=== PATIENT | male | born 1945 | race Caucasian/White ===

== ENCOUNTER 2023-08-05 06:35 | Outpatient (RCR) | payer MEDICARE, OTHER, SELFPAY | END 2023-08-05 23:59 | disposition home or self-care (01) | LOC: RPT 06:35 | PROVIDERS: ATTENDING PHYSICIAN Family Medicine | DX: R26.89 Other abnormalities of gait and mobility (principal); Z73.6 Limitation of activities due to disability; M25.562 Pain in left knee; M25.561 Pain in right knee; G62.9 Polyneuropathy, unspecified; R53.1 Weakness; I25.2 Old myocardial infarction | CPT/HCPCS: 97110; 97112; 97162 ==

== ENCOUNTER 2023-09-02 07:29 | Outpatient (RCR) | payer MEDICARE, OTHER, SELFPAY | END 2023-09-02 23:59 | disposition home or self-care (01) | LOC: RPT 07:29 | PROVIDERS: ATTENDING PHYSICIAN Family Medicine | DX: Z51.89 Encounter for other specified aftercare (principal); R26.89 Other abnormalities of gait and mobility; Z73.6 Limitation of activities due to disability; M62.81 Muscle weakness (generalized); G62.9 Polyneuropathy, unspecified; M25.562 Pain in left knee; M25.561 Pain in right knee; I25.2 Old myocardial infarction | CPT/HCPCS: 97110; 97112 ==

== ENCOUNTER 2023-09-12 06:33 | Outpatient (RCR) | payer MEDICARE, OTHER, SELFPAY | END 2023-09-25 09:39 | disposition home or self-care (01) | LOC: RPT 06:33 | PROVIDERS: ATTENDING PHYSICIAN Family Medicine | DX: R26.9 Unspecified abnormalities of gait and mobility (principal); Z51.89 Encounter for other specified aftercare; Z73.6 Limitation of activities due to disability | CPT/HCPCS: 97110; 97112 ==

== ENCOUNTER 2023-10-13 19:25 | Emergency (ER) | payer OTHER, MEDICARE, SELFPAY ==
[2023-10-13 19:29] VITALS: BP 155/93
[2023-10-13 21:07] VITALS: BP 143/92
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
[2023-10-13] MEDS: TYLENOL 1000 MG PO (22:30)
[2023-10-13 22:34] VITALS: BP 172/97
[2023-10-13 22:35] VITALS: BP 172/97
== END 2023-10-13 22:39 | disposition home or self-care (01) ==
LOC: EMR 19:25
PROVIDERS: EMERGENCY PHYSICIAN Emergency Medicine; FAMILY PHYSICIAN Family Medicine
DX: S46.911A Strain of unspecified muscle, fascia and tendon at shoulder and upper arm level, right arm, initial encounter (principal); V49.40XA Driver injured in collision with unspecified motor vehicles in traffic accident, initial encounter; I48.91 Unspecified atrial fibrillation; I25.10 Atherosclerotic heart disease of native coronary artery without angina pectoris; I11.0 Hypertensive heart disease with heart failure; I50.9 Heart failure, unspecified; I25.2 Old myocardial infarction; Z79.01 Long term (current) use of anticoagulants; Z86.73 Personal history of transient ischemic attack (TIA), and cerebral infarction without residual deficits; Z87.891 Personal history of nicotine dependence; Z95.5 Presence of coronary angioplasty implant and graft; Z95.810 Presence of automatic (implantable) cardiac defibrillator
CPT/HCPCS: 99284; 70450; 73030

== ENCOUNTER 2023-12-08 18:25 | Inpatient (IN) | payer MEDICARE, OTHER, SELFPAY ==
[2023-12-07] VITALS (9 sets, daily range): BP systolic 119–152; BP diastolic 74–94; BMI 30.4
--- NOTE | 2023-12-07 15:36 | ED.GENMED ---
History of Present Illness
General
Chief Complaint: Headache
Source: patient and family
Exam Limitations: none
Time Seen by Provider: 12/07/23 15:25
Travel History
Have you had any contact with someone who has COVID-19?: No
Do you have any symptoms of coronavirus? Fever > 100 degrees, chills, cough, shortness of breath, sore throat, loss of taste or smell, muscle aches, or headache?: No
History of Present Illness
History of Present Illness:
78-year-old male woke at 9 AM and appeared to notice visual issues upon wakening. Initially describes some decreased vision in the right side. Then at times noted more horizontal decreased vision superiorly. Some left-sided headache that is now
left-sided pressure. Also some cognitive issues where he felt like he could not dial the phone. Symptoms have improved some. Patient is on a DOAC.
Past History
Past History
ED Past Medical History: Arrthythmia (Atrial fib), CAD, CHF, HTN, [place] and Other (KIDNEY STONE)
ED Past Surgical History: Cardiac (AICD/pacemaker placement, Stents x 2) and Orthopedic
Social History
Tobacco: Former smoker
Alcohol: None
Drug: None
Personal:
Living: with family
Employment: Employed
Family History
Family History: Other
Review of Systems
Review of Systems
All Other Systems: ROS reviewed and negative except as documented in HPI and ROS
Respiratory: Reports no symptoms
Cardiac: Reports no symptoms
ABD/GI: Reports no symptoms
Phy Exam
Physical Exam
Physical Exam:
GENERAL: Alert and oriented in no apparent distress
EYE: Orbits normal.
NECK: Supple, no carotid bruit
ENT: Pharynx without erythema
CARDIAC: Minimally irregular. Pacemaker.
LUNGS: Clear breath sounds,normal
ABDOMEN: Soft, without focal tenderness or distention
NEUROLOGICAL: Alert and oriented , decreased extension of the right arm secondary to shoulder issues. No weakness in the arm. Good lower extremity strength. Questionable quadrantanopsia right upper. Not always consistent but may have a visual
field cut
SKIN: Warm and dry, no rash or lesion, no discoloration, skin intact.
MUSCULOSKELETAL: No edema,no deformity.Good color
PSYCH: Normal and appropriate interaction.
Course
Orders/Labs/Results
Orders:
Orders
12/07/23 14:44
CT Head W/o Iv Contrast Urgent
Comment:
Reason For Exam: headache, visual cut right eye
12/07/23 15:36
Cardiac Monitoring- Treatment ONCE
IV Insert/Care/Rem.- Treatment PRN
Pulse Ox/cont/shift [RESP] Stat
Quantity: 1
12/07/23 15:37
Electrocardiogram (*1) Stat
Reason for Study: Other
Other Reason for Exam: neuro symptoms
EKG- Treatment ONCE
12/07/23 15:41
Complete Blood Count/With Diff Urgent
ESR [Erythrocyte Sed Rate] Urgent
PTT Urgent
Prothrombin Time Urgent
12/07/23 15:42
CT Head & Neck Angio W/wo IV Urgent
Comment:
Reason For Exam: Headache/quadrantanopsia/cognitive issues
12/07/23 18:23
NEUROLOGY CONSULT Routine
Consulting Provider: Jd Ryder
Was physician already notified: Yes
Reason for consult: Right eye visual field cut concern for CVA
12/07/23 18:24
Admit/Transfer Patient As Directed
Co-Sign Provider:
Level of Care: Observation services
Assign to:: Telemetry
Physician / Group: zeferino messina
Diagnosis: Right eye visual field cut concern for CVA
Reason for Telemetry: CVA/TIA
Date to Stop Telemetry: 12/10/23
Time to Stop Telemetry: 11:00
Code Status As Directed
Resuscitation Status: Full Code
12/07/23 18:45
Basic Metabolic Panel Urgent
12/08/23 06:00
Echo 2D MMode Color/Doppler IN AM
Reason for Study: cva
12/10/23 11:00
DC Protocol for Telemetry ONCE
Abnormal Lab Results
12/07/23 12/07/23
15:41 18:45
RBC 4.66 L 10^6/uL
(4.70-6.10)
RDW 15.2 H %
(11.5-14.5)
MPV 10.7 H fL
(7.4-10.4)
Absolute Monos (auto) 0.7 H 10^3/uL
(0.1-0.6)
PT 16.0 H Sec
(11.4-14.6)
APTT 36.3 H Sec
(23.4-35.0)
Chloride 108 H mmol/L
(98-107)
BUN 27 H mg/dl
(9-20)
Glucose 139 H mg/dl
(70-99)
12/07/23 15:41
12/07/23 18:45
Vital Signs
Initial and Last Documented VS:
Initial Vital Signs
Temp Pulse Resp BP Pulse Ox
97.9 F 83 20 140/79 98
12/07/23 14:38 12/07/23 14:38 12/07/23 14:38 12/07/23 14:38 12/07/23 14:38
Last Documented Vital Signs
Temp Pulse Resp BP Pulse Ox
98.5 F 74 18 119/94 97
12/07/23 18:52 12/07/23 20:01 12/07/23 20:01 12/07/23 20:01 12/07/23 20:01
MDM/Problems Addressed
Differential Diagnosis Includes:
Patient describing neurologic symptoms that started at 9 AM and have improved some. Clinically very stable and nontoxic. Possibly a quadrantanopsia. No other obvious acute neurologic issues. Discussed with neurology. They do recommend CTA
admission and further care.
*Pulse Oximetry
Patient hypoxic: no
*EKG
Interpreted by ED Provider?: Yes
Interpretation: abnormal
Comparison EKG: no changes
Heart Rate: 70
Rate: normal
Rhythm: a-fib and other (Ventricular paced complexes)
[place]: normal axis
Interval: normal interval
QRS Pattern: normal QRS
Ischemia: non-specific ST changes
*Critical Care Note
Total Time (30-74mins, 75-104mins- exclusive of procedures): Not Applicable
Data Reviewed
Review of Other/Old Records Reveals: Labs, Records, Radiology Studies, Testing and Discharge Summary
ED Attending Note
-
Portions of this chart may have been created with voice recognition software.� Occasional wrong word or��sound alike� substitutions may have occurred due to the inherent limitations of voice recognition software.
Discharge Plan
Departure
Patient Disposition: Admit
Date of Disposition: 12/07/23
Time of Disposition: 17:43
Presentation/result/management discussed w/ accepting MD/DO: Neurology
Discharge Problem:
Quadrantanopsia., Cognitive issues, Possible CVA
Interventions
Interventions:
*Risk Screen - Suicide Last Done: 12/07/23 15:52
*General Assessment Last Done: 12/07/23 15:52
*Neglect/Abuse Screening Last Done: 12/07/23 15:52
ED- Fall Risk Assessment Last Done: 12/07/23 15:52
*ED COVID-19 Vaccine History Last Done: 12/07/23 15:52
ED- Neurological Assessment Last Done: 12/07/23 15:52
[2023-12-07 15:48] LABS: % Basophils 0.4 % (0-2); % Immature Granulocytes 0.4 % (0-0.5); % Neutrophils 66.2 % (42.2-75.2); Absolute Eosinophils 0.3 10^3/uL (0-0.7); Absolute Lymphocytes 2.2 10^3/uL (1.2-3.4); Absolute Monocytes 0.7 10^3/uL (0.1-0.6); Absolute Neutrophils 6.4 10^3/uL (1.4-6.5); Hematocrit 41.7 % (39.0-52.0); Hemoglobin 14.1 g/dL (13.0-18.0); Mean Corp Hgb Conc. 33.8 g/dL (33.0-37.0); Mean Corpuscular Hgb 30.3 pg (27.0-31.0); Mean Corpuscular Volume 89.5 fL (80.0-94.0); Mean Platelet Volume 10.7 fL (7.4-10.4); Nucleated Red Blood Cells % 0 % (-); Platelet Count 158 10^3/uL (130-400); Red Blood Cell Count 4.66 10^6/uL (4.70-6.10); Red Cell Dist. Width 15.2 % (11.5-14.5); White Blood Cell Count 9.7 10^3/uL (4.8-10.8)
[2023-12-07 16:00] LABS: APTT 36.3 Sec (23.4-35.0)
[2023-12-07 16:02] LABS: Erythrocyte Sed Rate 7 mm/hour (0-20)
--- NOTE | 2023-12-07 17:47 | HPS.HSE ---
Addendum entered and electronically signed by Felipa Abreu MD 12/07/23 18:50:
pt seen and examined independently--agree with [employer] note
GENERAL: well developed, well nourished, male in no apparent distress
HEENT:NC/AT--visual field cut right eye, right upper quadrant
HEART: regular rate and rhythm, +S1, +S2
LUNGS : clear to auscultation bilaterally
ABDOM: soft, nontender, nondistended, + bowel sounds
EXT: no cyanosis, clubbing, or edema
NEUROLOGIC: grossly intact with exception of visual field cut
Left sided parietal Headache with right sided visual field impairment concern for CVA--despite being on Eliquis and ASA--(Hx prior chronic lacunar infarcts left thalamus patient was unaware of)--ADMIT--agree with neuro/PT/OT/SPEECH/MRI brain/lipid
panel/ECHO--would consider Verify now for ASA therapeutics, may need to change to plavix instead--cont asa/Eliquis/statin for now--check HGB R1H--OOQ brain-patient has conditional MRI/AICD [facility]
Essential HTN--Continue carvedilol 25 mg twice daily
Chronic right shoulder pain--Patient is in process of being worked up for right shoulder cuff tear has outpatient MRI scheduled in future
Chronic diastolic CHF without exacerbation--I/O, daily weights--Continue Entresto 1 tab p.o. twice daily--Continue furosemide 40 mg twice daily spironolactone 12.5 mg daily--Continue Farxiga 10 mg daily (2D echo 11/27/2022: EF 51%, mild to moderate
aortic stenosis, mild TR)--will repeat
CAD/PA October 2017--History of prior LAD stent x2 --nonsustained SVT 09/23/2022--Cardiac cath 10/02/2022 for NSVT, prior ST PA: Patent stents in the proximal LAD and small distal LAD, luminal irregularities in the RCA-Continue aspirin, carvedilol 25 mg
twice daily, Crestor 40 mg daily
Pacemaker/AICD [facility] conditional MRI
[id number]--Continue Eliquis 5 mg twice daily, carvedilol 25 mg twice daily
Carotid stenosis status post CEA
Overactive bladder--Continue Myrbetriq 25 mg daily
BPH--Continue Flomax 0.4 mg daily
Other PMH:
sleep apnea-does not use CPAP
anxiety
renal calculi
OA
[place]
skin CA squamous cell
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
Code status --Full code
Original Note:
Family Physician
-
Family Physician: Brandon Bowen
Chief Complaint
-
Left-sided headache, right eye visual field cut
History of Present Illness
78-year-old male who woke up at 9 AM noticed visual changes in his right eye first he states he could not see horizontally from 3-9 o'clock. He then developed a visual field cut from approximately 12-4 o'clock which she still has. He reported a
left-sided headache temporal/parietal area. Reports being able to read although he cannot distinguish the proper letters when he is reading. He also reports feeling difficulty being able to dial the phone. He is on DOAC therapy. He denies fever,
chills, chest pain, palpitations, shortness with, cough, abdominal pain, nausea, vomit, diarrhea, urinary symptoms. He reports being told at some point in 2018 that he had prior head bleeds on a CT but he does not recall a further workup yet he is
on aspirin and Eliquis with no issues.
He has past medical history CAD/PA 10/24/2017 2 stents LAD, permanent pacemaker 09/23/2018/AICD carotid stenosis with CEA, HTN, HLD, CHF, nonsustained SVT 09/23/2022, sleep apnea, anxiety, renal calculi, OA, [place], skin CA squamous cell, BPH, urinary
frequency.
Medical History
Past Medical History
Past Medical History: Reports Other
Additional Past Medical History:
CAD/PA October 2017 LAD stent x 2
A-fib
Pacemaker/AICD
HTN
HLD
CVA
BPH
Urinary frequency
sleep apnea-does not use CPAP
anxiety
renal calculi
OA
[place]
skin CA squamous cell
Past Surgical History: Reports Other
Additional Past Surgical History:
AICD/pacemaker
Cardiac stents x 2 LAD
Carotid endarterectomy
Colonoscopy
Social History
Tobacco: Non-smoker
Alcohol: None
Drug: None
Personal:
Living: With Family
Employment: Retired
Family History
Family History: Other (Mother PA late 60s in mid 70s, father DM2, PA 60s mid 70s)
Allergies / Home Medications
Allergies reflects when Allergies were last updated in [facility].
Home Medications with original date entered in [facility]
Allergy/Medication List:
Allergies
Allergy/AdvReac Type Severity Reaction Status Date / Time
daptomycin AdvReac Eosinophill Verified 12/07/23 14:37
ia
Home Medications
multivitamin with folic acid 400 mcg tablet (Tab-A-Elma) 1 tab PO DAILY Supplement 06/27/20
furosemide 40 mg tablet 40 mg PO BID Fluid retention/Swelling 02/26/21
spironolactone 25 mg tablet 12.5 mg PO DAILY Heart Failure 02/26/21
apixaban 5 mg tablet (Eliquis) 5 mg PO BID Blood clot prevention/tx 05/22/21
aspirin 81 mg chewable tablet 81 mg PO DAILY Blood clot prevention/tx 05/22/21
rosuvastatin 40 mg tablet 40 mg PO DAILY 10/02/22
carvedilol 25 mg tablet 25 mg PO BID 12/07/23
cholecalciferol (vitamin D3) 25 mcg (1,000 unit) tablet (Vitamin D3) 25 mcg PO DAILY 12/07/23
coenzyme Q10 200 mg capsule (Co Q-10) 200 mg PO DAILY 12/07/23
dapagliflozin propanediol 10 mg tablet (Farxiga) 10 mg PO DAILY 12/07/23
mirabegron 25 mg tablet,extended release 24 hr (Myrbetriq) 25 mg PO DAILY 12/07/23
sacubitril 24 mg-valsartan 26 mg tablet (Entresto) 1 tab PO BID 12/07/23
tamsulosin 0.4 mg capsule 0.4 mg PO DAILY 12/07/23
Review of Systems
-
History Source: Patient and Family
A 12 point ROS was completed and negative except as noted: Yes
Constitutional: Denies Fever or Chills
EENT: Reports Other (Right eye visual field cut horizontal upper velázquez and right parietal 12-4 o'clock); Denies Sore Throat
Respiratory: Denies Cough, Hemoptysis or Trouble Breathing
Cardiac: Denies Chest Pain, Diaphoresis, Palpitations or Syncope
Abdomen/GI: Denies Abdominal Pain, Nausea, Vomiting, Diarrhea, Constipated, Bloody Stools or Black Stools
: Denies Dysuria, Frequency, Flank Pain or Incontinence
Musculoskeletal: Denies Joint Pain or Edema
Skin: Denies Itching or Rash
Neurological: Reports Headache (Left temporal/left parietal); Denies Dizzy, Weakness or Numbness
Endocrine: Reports No Symptoms
Hematologic/Lymphatic: Reports No Symptoms
Psych: Reports Calm
Physical Exam
Vital Signs
Vital Signs
Temp Pulse Resp BP Pulse Ox
97.9 F 83 20 140/79 97
12/07/23 14:38 12/07/23 14:38 12/07/23 14:38 12/07/23 14:38 12/07/23 15:52
Physical Exam
General: Conversant; No Pain, Fever or Chills
HEENT: NormoCephalic, Anicteric, Moist mucous membranes, PERRLA, [place] Conjunctivae, No Ptosis and Other (Field cut right eye parietal 12-4 o'clock)
Respiratory: Clear; No Wheezes, Rales or Rhonchi
Cardiac: S1/S2, Regular Rhythm and Other (Pacemaker/AICD present); No Murmur, Rub, Gallop or Peripheral Edema
Breast: Deferred by me
GI: Soft, Non Tender, Non Distended, Normal Bowel Sounds and No Hepatosplenomegaly
Rectal: Deferred by Provider
Genito-urinary: Deferred by me
Musculoskeletal: No Clubbing, No Cyanosis and No Edema
Skin: Warm and Dry; No Rash
Neuro: AO x 3, No Motor Deficits, Cranial Nerves Intact, No Sensory Deficits and Other (Right eye visual field cut 12-4 o'clock); No Slurred Speech or Facial Droop
Psych: Calm
Laboratory Results
-
12/07/23 15:41
Laboratory Results
PT 16.0 Sec (11.4-14.6) H 12/07/23 15:41
INR 1.30 12/07/23 15:41
APTT 36.3 Sec (23.4-35.0) H 12/07/23 15:41
Data Reviewed
-
CT Scan: Report Reviewed by me
Lab Data: Labs Reviewed by me
Impression/Plan
-
Impression/plan:
Observation telemetry
#Headache with visual field impairment concern for CVA
#Hx prior chronic lacunar infarcts left thalamus patient was unaware of
-Consult neurology
-Continue aspirin 81 mg daily, Crestor 40 mg daily
-Check lipid profile, HgbA1c
-MRI brain-patient has conditional MRI/AICD [facility]
-PT/OT/case management eval
CT head:
1. No acute intracranial hemorrhage
2. 7 mm chronic lacunar infarct in the left thalamus
3. Moderate white matter leukoaraiosis in the parietal lobe, frontal lobe
4. Mild diffuse cerebral and cerebellar volume loss
#HTN�benign
BP 140/79
-Continue carvedilol 25 mg twice daily
#Chronic right shoulder pain
Patient is in process of being worked up for right shoulder cuff tear has outpatient MRI scheduled in future
#Chronic CHF
I/O, daily weights
-Continue Entresto 1 tab p.o. twice daily
-Continue furosemide 40 mg twice daily spironolactone 12.5 mg daily
-Continue Farxiga 10 mg daily
2D echo 11/27/2022: EF 51%, mild to moderate aortic stenosis, mild TR
#CAD/PA October 2017
#History of prior LAD stent x2
#nonsustained SVT 09/23/2022,
#Cardiac cath 10/02/2022 for NSVT, prior ST PA: Patent stents in the proximal LAD and small distal LAD, luminal irregularities in the RCA
-Continue aspirin, carvedilol 25 mg twice daily, Crestor 40 mg daily
#Pacemaker/AICD [facility] conditional MRI
#[id number]
-Continue Eliquis 5 mg twice daily, carvedilol 25 mg twice daily
#Carotid stenosis status post CEA
#Overactive bladder
-Continue Myrbetriq 25 mg daily
#BPH
-Continue Flomax 0.4 mg daily
Other PMH:
sleep apnea-does not use CPAP
anxiety
renal calculi
OA
[place]
skin CA squamous cell
DVT prophylaxis
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
Full code
--- NOTE | 2023-12-07 18:18 | EDRN ---
Dr. Abreu currently at the pts bedside speaking with the pt and the pts
[2023-12-07 19:10] LABS: Blood Urea Nitrogen 27 mg/dl (9-20); Calcium 9.4 mg/dl (8.4-10.2); Carbon Dioxide 24 mmol/L (22-30); Chloride 108 mmol/L (98-107); Estimated Creatinine Clearance 62 ml/min; Glucose 139 mg/dl (70-99); Potassium 3.9 mmol/L (3.5-5.1); Sodium 142 mmol/L (135-145); eGFR > 60.00
--- NOTE | 2023-12-07 19:30 | EDRN ---
Report received, introducd myself to patient who ambulated to the restroom and back in bed and the to CT
--- NOTE | 2023-12-07 21:32 | EDRN ---
Patient up to bathroom, asked for some more apple juice, patient aware that he will be staying in the ER tonight, no complaints at this time, call santiago in reach.
[2023-12-07] MEDS: ELIQUIS 5 MG PO (22:49)
[2023-12-07] MEDS: ENTRESTO 24 MG/26 MG 1 TAB PO (22:49)
--- NOTE | 2023-12-07 22:50 | EDRN ---
Patient ambulated to the restroom and then placed into a hospital bed, gave him night medications, patient not wanting the lasix, reports he normally takes that in the morning, patient does not have any pitting edema noted, nor shortness of breath,
and has been urinating throughout the shift, will inform hospitalist, call santiago in reach and lights turned down
[2023-12-07] MEDS: COREG 25 MG PO (22:51)
[2023-12-07] MEDS: LASIX PO (22:55)
--- NOTE | 2023-12-07 23:37 | EDRN ---
Report to JOHN Castellanos
[2023-12-08] VITALS (10 sets, daily range): BP systolic 109–154; BP diastolic 57–94; PULSE 58–68
[2023-12-08 05:03] LABS: % Basophils 0.4 % (0-2); % Eosinophils 3.2 % (0-6); % Immature Granulocytes 0.4 % (0-0.5); % Lymphocytes 23.2 % (20.5-51.1); % Monocytes 7.2 % (1.7-9.3); % Neutrophils 65.6 % (42.2-75.2); Absolute Eosinophils 0.3 10^3/uL (0-0.7); Absolute Lymphocytes 2.1 10^3/uL (1.2-3.4); Absolute Monocytes 0.7 10^3/uL (0.1-0.6); Hematocrit 43.5 % (39.0-52.0); Hemoglobin 14.5 g/dL (13.0-18.0); Mean Corp Hgb Conc. 33.3 g/dL (33.0-37.0); Mean Corpuscular Hgb 30.3 pg (27.0-31.0); Mean Platelet Volume 10.4 fL (7.4-10.4); Nucleated Red Blood Cells % 0 % (-); Platelet Count 148 10^3/uL (130-400); Red Blood Cell Count 4.78 10^6/uL (4.70-6.10); Red Cell Dist. Width 15.2 % (11.5-14.5); White Blood Cell Count 9.1 10^3/uL (4.8-10.8)
[2023-12-08 05:29] LABS: Blood Urea Nitrogen 24 mg/dl (9-20); Calcium 9.4 mg/dl (8.4-10.2); Carbon Dioxide 27 mmol/L (22-30); Chloride 106 mmol/L (98-107); Estimated Creatinine Clearance 62 ml/min; Glucose 101 mg/dl (70-99); HDL Cholesterol 39 mg/dl; LDL Cholesterol, Calculated 48 mg/dl; Potassium 4.1 mmol/L (3.5-5.1); Sodium 140 mmol/L (135-145); Total Cholesterol 113 mg/dl (50-199); Triglyceride 133 mg/dl (10-149); Very Low Density Lipoprotein 26 mg/dl (0-30); eGFR > 60.00
[2023-12-08 05:39] LABS: VerifyNow Aspirin 519 ARU
[2023-12-08 05:47] LABS: VerifyNow PRU 229 PRU (180-376)
--- NOTE | 2023-12-08 07:58 | CON.NEURO4 ---
Addendum entered and electronically signed by Brandon Mason MD 12/08/23 10:20:
I saw and evaluated the patient agree with note by Sahra Bryan agree with the findings the following comments:
78-year-old man with a past medical history of previous left parietal thalamic ischemic stroke, left carotid endarterectomy, hypertension, CAD chronic kidney disease presents to hospital with acute onset of vision loss starting around yesterday
morning upon awakening.
I see the patient in the outpatient for history of stroke as well as peripheral neuropathy that is contributed to some ambulatory difficulties.
Patient reports compliance with aspirin as well as apixaban and no bleeding issues. No recent illnesses.
His vision change seems to be to the right side and he noticed it as missing people on the right side of the television. He had a bit of a headache yesterday that was unusual for him. Currently not have any speech difficulty unilateral weakness or
paresthesia he does relate that he has had some walking difficulties for the past couple of weeks.
He also relates that he was planned for an MRI of the shoulder in the outpatient setting later on in the month of December.
Neurologic examination is remarkable for right-sided homonymous hemianopia otherwise no significant changes in mental status motor function notable only for some chronic right shoulder issues but normal arm flexion and hip abduction bilaterally and
has known existing peripheral neuropathy.
CTA of the head and neck with no intracranial occlusions no significant carotid stenosis
Assessment: Very likely a new ischemic stroke to the left occipital region producing right-sided him on his hemianopia. Discussed with the patient that he is on maximal medical management and I overall like the safety and efficacy profile of
apixaban so I do not feel strongly that it would be in the best interest of the patient to switch his antithrombotic regimen, would rather focus on physical therapies and allow time to show stay send of his recovery.
Recommendations
-LDL is at goal continue his home statin, continue focus of treatment of hypertension, CKD, hyperlipidemia
-Would continue apixaban and aspirin
-Check transthoracic echocardiogram
-Physical therapy occupational therapy evaluations
-Discussed with patient that he should not drive which he understands due to right-sided homonymous hemianopia, with time over the course of 3 to 6 months we will likely see some improvement and hopefully will get to the point where visual field
testing which would need to be done by ophthalmology as an outpatient could get him to a place where he can drive
Original Note:
Documented by User: Sahra Bryan NP 12/08/23 09:46
Consultation - Neurology 4
-
CONSULTING PHYSICIAN: Bryon Mason MD
REFERRING PHYSICIAN: Hospitalists/LOUIS Giron
DICTATED BY: LOUIS Dueñas
DATE/TIME OF REQUEST: 12/07/23
DATE/TIME OF CONSULTATION: 12/08/23
Reason for Consultation: Vision loss
History of Present Illness:
This is a 78-year-old right-handed male with a PMH of L CEA, chronic left parietal/thalamic ischemic infarct, HTN, HLD, CAD, CKD, anxiety, untreated TRISTAN, and peripheral neuropathy who has presented to the hospital on 12/07/23 with report of
right-sided vision loss. Patient is followed by our Neurology service Dr. Mason as an outpatient for his history of stroke and peripheral neuropathy. Patient reports waking up yesterday morning (12/07/23) around 0800 and noticing that his vision was
'funny.' He couldn't see things on the right side of his vision. He tried to read something and couldn't read, he reports all of the letter look the same. He tried to call his but wasn't able to figure out how to use his phone. He also notes
having a left-sided 7/10 headache which was very unusual for him. He denies any dizziness, speech/swallow difficulty, new numbness, weakness, nausea, chest pain, palpitations, and shortness of breath. On arrival to the ER CT head and CTA head/neck
were obtained and are negative for any acute abnormalities. Today (12/08/23), his vision feels somewhat improved in his left eye but his right eye is the same. He reports it looks like their is a veil over things on the right side. He is taking
Eliquis for Afib and aspirin for cardiac stents and he denies missing any doses. He has been on Xarelto and Plavix years ago. He denies any recent fever, illness, or vision change like this in the past.
Past Medical History: Afib (Eliquis), HTN, HLD, CAD, PR, SVT, chronic left parietal and thalamic lacunar infarct, CKD, anxiety, TRISTAN (untreated), renal calculi, OA, [place] R, squamous cell carcinoma, BPH, peripheral neuropathy, bilateral carpal tunnel
syndrome
Surgical History: AICD, LAD stent x2, cardiac cath, left CEA
Family History: Reviewed and noncontributory.
Social History: Former smoker and alcohol. Denies illicit drug use.
Allergies: Daptomycin.
Home Medications: See below.
Review of Symptoms:
Patient denies any fever, headache, chest pain, shortness of breath, GI or symptoms.
�Per the HPI.�All systems are reviewed negative except above.
Physical Exam:
The patient is afebrile, abdomen is nondistended, breathing is unlabored, skin is warm and dry, no edema.
NIH Stroke Scale:
I performed the NIH stroke scale on the patient on 12/08/23 at 0900. The patient scored 2 points on the NIH stroke scale assessment, which were assigned as follows: See below.
Neurologic Examination:
The patient is awake, alert and oriented x 3. He is able to follow commands and answer questions appropriately. There is no aphasia or dysarthria. On cranial nerve assessment, pupils are 3 mm bilateral, round and reactive to light and
accommodation. There is a right-sided homonymous hemianopia, more pronounced in the right eye compared to the left eye. Extraocular movements are intact. Facial sensations are intact and bilaterally symmetrical, there is no facial asymmetry. Hearing
is diminished bilaterally to normal conversation volume. Tongue palate and uvula are midline. Sternocleidomastoid strengths are full bilaterally. Motor strengths are 5/5 bilateral upper and lower extremities on medical research Chevak scale
(limited ROM in R shoulder due to injury). There is no drift or involuntary movement noted. Deep tendon reflexes are 2+ bilateral upper and left lower extremities, trace RLE and Babinski is absent bilaterally. Sensations of temperature and vibration
are moderately reduced in distal bilateral lower extremities. There was no extinction noted on double simultaneous stimulation. Coordination is intact by finger to nose bilaterally.
Lab Results: See below.
Neuro Imaging:
1. CT Head 12/07/23: No CT evidence for acute intracranial hemorrhage or transcortical infarct. 7 mm chronic lacunar infarct in the left thalamus. Moderate white matter leukoaraiosis in the parietal lobes. Mild white matter leukoaraiosis in the
frontal lobes. Mild diffuse cerebral and cerebellar volume loss.
2. CTA head/neck 12/08/23: Moderate calcific and soft atherosclerotic plaque in the proximal right internal carotid artery causing a 50% diameter stenosis. No CTA evidence for stenosis in the left internal carotid artery following a left carotid
endarterectomy. 50% diameter stenosis at the origin of the left vertebral artery. No CTA evidence for stenosis in the right vertebral artery. Severe discogenic degenerative disease in the cervical spine with disc-osteophyte complexes causing mild
spinal cord compression and central canal stenosis at C4/C5, C5/C6, and C6/C7. Chronic asbestos exposure in the chest. HEAD CTA: Mild calcific atherosclerotic plaque in both intracranial internal carotid arteries causing less than 25% diameter
stenosis. No CTA evidence for large vessel arterial stenosis or occlusion in the posterior circulation. Moderate white matter leukoaraiosis in both cerebral hemispheres. 7 mm chronic lacunar infarct in the left thalamus.
3. MRI brain 07/17/21: No MRI evidence for acute infarct. Small chronic transcortical infarct in the posterior-inferior left parietal lobe. 5.5 mm chronic lacunar infarct in the left thalamus. Mild to moderate white matter leukoaraiosis in both
cerebral hemispheres. Tiny chronic intraparenchymal microhemorrhages in the left cerebellum and in both thalami. Mild diffuse cerebral and cerebellar volume loss. Mild paranasal sinus mucosal disease
Differentials for the patient's presentation include:
1. Likely an acute left occipital ischemic stroke producing a right homonymous hemianopia; unclear etiology.
2. Old left parietal and left thalamic ischemic stroke.
3. Hx left carotid occlusion s/p left CEA. CTA head/neck negative for any significant stenosis.
4. Chronic intraparenchymal microhemorrhages in the left cerebellum and thalami.
5. Peripheral neuropathy with chronic gait dysfunction.
Patient has the following risk factors for their symptoms: Afib, HTN, HLD, age
IV Tenecteplase/IAT candidacy: Not a candidate due to outside of time window.
Recommendations:
-Continue Eliquis 5mg BID and aspirin 81mg daily. No clear indication that changing anticoagulation will be of any benefit to patient.
-Goal normotension as it is 24 hour from symptom onset.
-MRI brain noncontrast pending.
-LDL goal <70. LDL is 48. LDL is at goal, continue home rosuvastatin 40mg daily.
-Goal normoglycemia, hbA1c is pending.
-Checking blood work for metabolic abnormalities.
-NIHSS and neurological checks per unit guidelines.
-Provide patient with a stroke education packet.
-PT/OT/ST evaluations
-DVT prophylaxis with OAC.
-Will follow pending results.
Discussed patient care with: Dr. Mason, the patient
Vital Signs and Labs
-
Vital Signs and Labs:
Vital Signs
Temp Pulse Resp BP Pulse Ox
97.6 F 65 13 128/72 98
12/08/23 07:26 12/08/23 08:27 12/08/23 07:26 12/08/23 08:27 12/08/23 07:26
Lab Results
12/08/23 04:49
12/08/23 04:49
PT 16.0 Sec (11.4-14.6) H 12/07/23 15:41
INR 1.30 12/07/23 15:41
APTT 36.3 Sec (23.4-35.0) H 12/07/23 15:41
Sodium 140 mmol/L (135-145) 12/08/23 04:49
Potassium 4.1 mmol/L (3.5-5.1) 12/08/23 04:49
BUN 24 mg/dl (9-20) H 12/08/23 04:49
Glucose 101 mg/dl (70-99) H 12/08/23 04:49
Calcium 9.4 mg/dl (8.4-10.2) 12/08/23 04:49
LDL Cholesterol, Calc 48 mg/dl 12/08/23 04:49
Medications
-
Active Medications
Generic Name Dose Route Start Last Admin
Trade Name Freq PRN Reason Stop Dose Admin
Acetaminophen 650 mg 12/07/23 21:30
Acetaminophen 650 Mg Rectal Suppository RECTAL 01/04/24 21:29
Q4HPRN PRN
CROFT, mild pain, or temp >100.4F
Acetaminophen 650 mg 12/07/23 21:30 12/08/23 08:33
Acetaminophen 325 Mg Tablet PO 01/04/24 21:29 650 mg
Q4HPRN PRN Administration
CROFT, mild pain, or temp >100.4F
Apixaban 5 mg 12/07/23 21:30 12/08/23 08:26
Apixaban (Eliquis) 5 Mg Tablet PO 01/04/24 21:29 5 mg
BID JONO Administration
Aspirin 81 mg 12/08/23 08:00 12/08/23 08:26
Aspirin 81 Mg Chewable Tablet PO 01/05/24 07:59 81 mg
DAILY JONO Administration
Carvedilol 25 mg 12/07/23 21:30 12/08/23 08:24
Carvedilol 25 Mg Tablet PO 01/04/24 21:29 25 mg
BID JONO Administration
Cholecalciferol 25 mcg 12/08/23 08:00 12/08/23 08:26
Cholecalciferol (Vitamin D3) 25 Mcg Tablet (1,000 Units) PO 01/05/24 07:59 25 mcg
DAILY JONO Administration
Dapagliflozin 10 mg 12/08/23 08:00 12/08/23 08:24
Dapagliflozin (Farxiga) 10 Mg Tablet PO 01/05/24 07:59 10 mg
DAILY JONO Administration
Furosemide 40 mg 12/07/23 21:30 12/08/23 08:27
Furosemide 40 Mg Tablet PO 01/04/24 21:29 40 mg
BID JONO Administration
Mirabegron 25 mg 12/08/23 08:00 12/08/23 08:26
Mirabegron Extended Release 25 Mg Tab (Non Form) PO 01/05/24 07:59 25 mg
DAILY JONO Administration
Multivitamins Therapeutic 1 tablet 12/08/23 08:00 12/08/23 08:26
Multivitamin Tablet PO 01/05/24 07:59 1 tablet
DAILY JONO Administration
Rosuvastatin Calcium 40 mg 12/08/23 08:00 12/08/23 08:26
Rosuvastatin (Crestor) 40 Mg Tablet PO 01/05/24 07:59 40 mg
DAILY JONO Administration
Sacubitril/Valsartan 1 tab 12/07/23 21:30 12/08/23 08:24
Sacubitril 24 Mg/Valsartan 26 Mg (Entresto) Tab PO 01/04/24 21:29 1 tab
BID JONO Administration
Spironolactone 12.5 mg 12/08/23 08:00 12/08/23 08:28
Spironolactone 25 Mg Tablet PO 01/05/24 07:59 12.5 mg
DAILY JONO Administration
Tamsulosin HCl 0.4 mg 12/08/23 08:00 12/08/23 08:26
Tamsulosin 0.4 Mg Capsule PO 01/05/24 07:59 0.4 mg
DAILY JONO Administration
Home Medications
�Medication �Instructions �Recorded
multivitamin with folic acid 400 1 tab PO DAILY Supplement 06/27/20
mcg tablet (Tab-A-Elma)
furosemide 40 mg tablet 40 mg PO BID Fluid 02/26/21
retention/Swelling
spironolactone 25 mg tablet 12.5 mg PO DAILY Heart Failure 02/26/21
apixaban 5 mg tablet (Eliquis) 5 mg PO BID Blood clot 05/22/21
prevention/tx
aspirin 81 mg chewable tablet 81 mg PO DAILY Blood clot 05/22/21
prevention/tx
rosuvastatin 40 mg tablet 40 mg PO DAILY 10/02/22
carvedilol 25 mg tablet 25 mg PO BID 12/07/23
cholecalciferol (vitamin D3) 25 25 mcg PO DAILY 12/07/23
mcg (1,000 unit) tablet (Vitamin
D3)
coenzyme Q10 200 mg capsule (Co 200 mg PO DAILY 12/07/23
Q-10)
dapagliflozin propanediol 10 mg 10 mg PO DAILY 12/07/23
tablet (Farxiga)
mirabegron 25 mg tablet,extended 25 mg PO DAILY 12/07/23
release 24 hr (Myrbetriq)
sacubitril 24 mg-valsartan 26 mg 1 tab PO BID 12/07/23
tablet (Entresto)
tamsulosin 0.4 mg capsule 0.4 mg PO DAILY 12/07/23
NIH Stroke Score
Subsequent NIH Scale
Date of Subsequent NIH Scale: 12/08/23
Time of Subsequent NIH Scale: 09:00
NIH Stroke Score
Level of Consciousness: 0 - Alert
LOC Questions: 0-Answers both correctly
LOC Commands: 0-Performs both correctly
Best Horizontal Gaze: 0-Normal
Visual Chen: 2=Full hemianopia
Facial Palsy: 0=Normal, symmetrical
Motor - Right Arm: 0=No drift 10 seconds
Motor - Left Arm: 0=No drift 10 seconds
Motor - Right Le-No drift 5 seconds
Motor - Left Le-No drift 5 seconds
Limb Ataxia: 0-Absent
Sensation: 0-Normal
Best Language: 0-No aphasia
Dysarthria: 0-Normal
Extinction and Inattention: 0-No abnormality
Total Score:: 2
Modified [place] (mRS) Score
Modified [place] Scale (mRS): Moderate disability. Requires some help, able to walk unassisted.
Score: 3

Documented by User: Brandon Mason MD 12/08/23 10:13
NIH Stroke Score
NIH Stroke Score
Total Score:: 2
Modified [place] (mRS) Score
Score: 3
[2023-12-08] MEDS: FARXIGA 10 MG PO (08:24)
[2023-12-08] MEDS: COREG 25 MG PO ×2 (08:24→21:16)
[2023-12-08] MEDS: ENTRESTO 24 MG/26 MG 1 TAB PO ×2 (08:24→22:17)
[2023-12-08 08:25] LABS: Glucose - Point of Care 93 mg/dl (70-99)
[2023-12-08] MEDS: CRESTOR 40 MG PO (08:26)
[2023-12-08] MEDS: LOW STRENGTH ASPIRIN 81 MG PO (08:26)
[2023-12-08] MEDS: MYRBETRIQ EXTENDED RELEASE 25 MG PO (08:26)
[2023-12-08] MEDS: FLOMAX 0.400000000000000022 MG PO (08:26)
[2023-12-08] MEDS: THERAGRAN 1 TABLET PO (08:26)
[2023-12-08] MEDS: ELIQUIS 5 MG PO ×2 (08:26→20:19)
[2023-12-08] MEDS: VITAMIN D3 (cholecalciferol) 25 MCG PO (08:26)
[2023-12-08] MEDS: LASIX 40 MG PO (08:27)
[2023-12-08] MEDS: ALDACTONE 12.5 MG PO (08:28)
[2023-12-08] MEDS: TYLENOL 650 MG PO ×2 (08:33→21:19)
--- NOTE | 2023-12-08 09:28 | W.PN.HOSP.TC ---
Today's Communication/Plan
-
Stroke workup in progress. Neurology consult.
Assessment / Plan
Assessment / Plan
Physical exam:
General: Acutely ill
HEENT: Normocephalic, Atraumatic and Moist Mucous Membranes
Respiratory: Clear to Auscultation; Negative Wheezes, Rales or Rhonchi
Cardiac: Regular Rhythm and S1/S2
GI: Soft, Nontender and Nondistended
Musculoskeletal: No Clubbing, No Cyanosis and No Edema
Neuro: Awake, Alert and Oriented, right upper extremity weak but prior to this event, presence of right homonymous hemianopsia.
Psych: Calm
A/P:
#Headache with visual field impairment likely acute CVA
#Hx prior chronic lacunar infarcts left thalamus patient was unaware of
-Consult neurology
-Continue aspirin 81 mg daily, Crestor 40 mg daily
-Check lipid profile, HgbA1c
-MRI brain-patient has conditional MRI/AICD [facility]
-PT/OT/case management eval
CT head:
1. No acute intracranial hemorrhage
2. 7 mm chronic lacunar infarct in the left thalamus
3. Moderate white matter leukoaraiosis in the parietal lobe, frontal lobe
4. Mild diffuse cerebral and cerebellar volume loss
#HTN�benign
-Continue carvedilol 25 mg twice daily
#Chronic right shoulder pain
Patient is in process of being worked up for right shoulder cuff tear has outpatient MRI scheduled in future
#Chronic CHF
I/O, daily weights
-Continue Entresto 1 tab p.o. twice daily
-Continue furosemide 40 mg twice daily spironolactone 12.5 mg daily
-Continue Farxiga 10 mg daily
2D echo 11/27/2022: EF 51%, mild to moderate aortic stenosis, mild TR
#CAD/[place] October 2017
#History of prior LAD stent x2
#nonsustained SVT 09/23/2022,
#Cardiac cath 10/02/2022 for NSVT, prior [facility]: Patent stents in the proximal LAD and small distal LAD, luminal irregularities in the RCA
-Continue aspirin, carvedilol 25 mg twice daily, Crestor 40 mg daily
#Pacemaker/AICD [facility] conditional MRI
#F-pxk-pfwribiono
-Continue Eliquis 5 mg twice daily, carvedilol 25 mg twice daily
#Carotid stenosis status post CEA
#Overactive bladder
-Continue Myrbetriq 25 mg daily
#BPH
-Continue Flomax 0.4 mg daily
Other PMH:
sleep apnea-does not use CPAP
anxiety
renal calculi
OA
[place]
skin CA squamous cell
DVT prophylaxis
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
Full code
Total time spent on today's encounter was 52 minutes which included time spent in counseling the patient/family regarding diagnosis and treatment plan as listed above, goals of care, and symptom management. Case was discussed with nursing staff,
specialists, and care coordinators/case management. All labs and imaging personally reviewed by me. Remainder the time spent in detailed review of previous records, lab data, imaging, and other medical provider documentation.
Anticipated Discharge: > 48 hours
Subjective/Interval History
-
Date of Service: December 08, 2023
Patient continues to have right eye loss of vision. Generalized weakness. Prior weakness on right upper extremity
Objective Data
-
Labs:
Laboratory Results
12/08/23
04:49
WBC 9.1
Hgb 14.5
Hct 43.5
Plt Count 148
Sodium 140
Potassium 4.1
Chloride 106
Carbon Dioxide 27
BUN 24 H
Creatinine 1.1
Glucose 101 H
Calcium 9.4
Vital Signs:
Vital Signs
Temp Pulse Resp BP Pulse Ox
97.6 F 65 13 128/72 98
12/08/23 07:26 12/08/23 08:27 12/08/23 07:26 12/08/23 08:27 12/08/23 07:26
[2023-12-08 10:59] LABS: TSH Reflex To Free T4 3.89 uIU/ml (0.47-4.68)
[2023-12-08 11:03] LABS: Ferritin 53.6 ng/ml (17.9-464.0)
[2023-12-08 11:34] LABS: Folate > 20.0 ng/ml (2.76-20); Vitamin B12 495 pg/ml (239-931)
[2023-12-08 12:10] LABS: Glycohemoglobin (HgbA1c) 5.7 % (4.0-5.6)
[2023-12-08 12:10] LABS: Glycohemoglobin (HgbA1c) 5.8 % (4.0-5.6)
[2023-12-08] MEDS: LASIX PO (20:00)
--- NOTE | 2023-12-08 21:09 | EDRN ---
Had to call Pharmacy again about sending patients medications that were due at 1999, they still have not sent, patient aware of delay and resting comfortably
--- NOTE | 2023-12-08 22:29 | EDRN ---
Emptied patietns urinal and turned down lights, call santiago in reach and vital signs stable
[2023-12-09 05:11] VITALS: BP 138/75
--- NOTE | 2023-12-09 05:29 | EDRN ---
[facility] morning blood work, patient has been resting comfortably, will continue to monitor, no complaints at this time.
[2023-12-09 05:31] LABS: Hematocrit 44.5 % (39.0-52.0); Hemoglobin 14.7 g/dL (13.0-18.0); Mean Corpuscular Hgb 30.2 pg (27.0-31.0); Mean Corpuscular Volume 91.6 fL (80.0-94.0); Mean Platelet Volume 10.8 fL (7.4-10.4); Platelet Count 147 10^3/uL (130-400); Red Blood Cell Count 4.86 10^6/uL (4.70-6.10); Red Cell Dist. Width 14.7 % (11.5-14.5); White Blood Cell Count 8.6 10^3/uL (4.8-10.8)
[2023-12-09 05:53] LABS: Blood Urea Nitrogen 26 mg/dl (9-20); Calcium 8.9 mg/dl (8.4-10.2); Carbon Dioxide 25 mmol/L (22-30); Chloride 107 mmol/L (98-107); Estimated Creatinine Clearance 68 ml/min; Glucose 92 mg/dl (70-99); Sodium 140 mmol/L (135-145); eGFR > 60.00
--- NOTE | 2023-12-09 08:36 | W.PN.HOSP.TC ---
Today's Communication/Plan
-
MRI of the brain. PT OT.
Assessment / Plan
Assessment / Plan
Physical exam:
General: Acutely ill
HEENT: Normocephalic, Atraumatic and Moist Mucous Membranes
Respiratory: Clear to Auscultation; Negative Wheezes, Rales or Rhonchi
Cardiac: Regular Rhythm and S1/S2
GI: Soft, Nontender and Nondistended
Musculoskeletal: No Clubbing, No Cyanosis and No Edema
Neuro: Awake, Alert and Oriented, right upper extremity weak but prior to this event, presence of right homonymous hemianopsia.
Psych: Calm
A/P:
#Headache with visual field impairment likely acute CVA
#Hx prior chronic lacunar infarcts left thalamus patient was unaware of
-Consult neurology appreciated
-Continue aspirin 81 mg daily, Eliquis 5 mg twice a day, Crestor 40 mg daily
-Check lipid profile, HgbA1c-->LDL 48, HbA1c 5.7
-MRI brain-patient has conditional MRI/AICD [facility]
-PT/OT/case management eval
CT head:
1. No acute intracranial hemorrhage
2. 7 mm chronic lacunar infarct in the left thalamus
3. Moderate white matter leukoaraiosis in the parietal lobe, frontal lobe
4. Mild diffuse cerebral and cerebellar volume loss
#HTN�benign
-Continue carvedilol 25 mg twice daily
#Chronic right shoulder pain
Patient is in process of being worked up for right shoulder cuff tear has outpatient MRI scheduled in future
#Chronic CHF
I/O, daily weights
-Continue Entresto 1 tab p.o. twice daily
-Continue furosemide 40 mg twice daily spironolactone 12.5 mg daily
-Continue Farxiga 10 mg daily
2D echo 11/27/2022: EF 51%, mild to moderate aortic stenosis, mild TR
#CAD/[place] October 2017
#History of prior LAD stent x2
#nonsustained SVT 09/23/2022,
#Cardiac cath 10/02/2022 for NSVT, prior [facility]: Patent stents in the proximal LAD and small distal LAD, luminal irregularities in the RCA
-Continue aspirin, carvedilol 25 mg twice daily, Crestor 40 mg daily
#Pacemaker/AICD [facility] conditional MRI
#B-[id number]-bpwshdqwbm
-Continue Eliquis 5 mg twice daily, carvedilol 25 mg twice daily
#Carotid stenosis status post CEA
#Overactive bladder
-Continue Myrbetriq 25 mg daily
#BPH
-Continue Flomax 0.4 mg daily
Other PMH:
sleep apnea-does not use CPAP
anxiety
renal calculi
OA
[place]
skin CA squamous cell
DVT prophylaxis
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
Full code
Anticipated Discharge: 24 - 48 hours
Subjective/Interval History
-
Date of Service: December 09, 2023
Patient feels better in terms of his visual loss. No new weakness.
Objective Data
-
Labs:
Laboratory Results
12/09/23
05:08
WBC 8.6
Hgb 14.7
Hct 44.5
Plt Count 147
Sodium 140
Potassium 4.0
Chloride 107
Carbon Dioxide 25
BUN 26 H
Creatinine 1.0
Glucose 92
Calcium 8.9
Vital Signs:
Vital Signs
Temp Pulse Resp BP Pulse Ox
97.6 F 63 16 138/75 97
12/08/23 07:26 12/09/23 06:00 12/08/23 20:21 12/09/23 05:11 12/08/23 20:21
I&O
06/03/24 06/04/24 06/05/24
06:59 06:59 06:59
Output Total 400 / 400
Balance -400 / -400
[2023-12-09] MEDS: ENTRESTO 24 MG/26 MG 1 TAB PO ×2 (09:04→21:23)
[2023-12-09] MEDS: MYRBETRIQ EXTENDED RELEASE 25 MG PO (09:04)
[2023-12-09] MEDS: LOW STRENGTH ASPIRIN 81 MG PO (09:07)
[2023-12-09] MEDS: CRESTOR 40 MG PO (09:07)
[2023-12-09] MEDS: COREG 25 MG PO ×2 (09:07→21:22)
[2023-12-09] MEDS: FARXIGA 10 MG PO (09:07)
[2023-12-09] MEDS: LASIX 40 MG PO (09:07)
[2023-12-09] MEDS: FLOMAX 0.400000000000000022 MG PO (09:07)
[2023-12-09] MEDS: VITAMIN D3 (cholecalciferol) 25 MCG PO (09:07)
[2023-12-09] MEDS: ALDACTONE 12.5 MG PO (09:10)
[2023-12-09] MEDS: ELIQUIS 5 MG PO ×2 (09:11→21:10)
[2023-12-09] MEDS: THERAGRAN 1 TABLET PO (09:11)
--- NOTE | 2023-12-09 09:16 | CM ---
CM following re: discharge planning.
CM consulted to assist pty with discharge planning in ED.
Pt is a 78 year old male, admitted with primary dx of headache. Pt stated he will have MRI test most likely today.
Pt reports he lives with spouse in a 2SH, 2 steps to enter, has supportive son. 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 No VN or SNF history.
PT evaluations noted - outpatient PT/OT recommended. pt is aware, expressed his agreement.
Please provide a script for outpatient PT/OT at discharge.
PCP: Brandon Bowen
Pharmacy: [facility]
D/C plan: home with outpatient PT/OT at outpatient therapy department. Family to transport at discharge.
CM will follow with discharge plan updates as needed.
[2023-12-09] MEDS: TYLENOL 650 MG PO (09:29)
[2023-12-09 11:52] VITALS: BP 130/90
--- NOTE | 2023-12-09 13:02 | PTCARENOTE ---
Assumed care of pt at 0645. AAOx3. Vpaced on registered nurse cardiac. VSS. NIHSS 1. Pt does have hx of neuropathy. Decreased sensation at baseline. MRI of brain today. Pt does have PPM. Assessment documented. Pt without complaint at this time, call santiago
within reach.
--- NOTE | 2023-12-09 14:55 | W.PN.NEURO.1 ---
Today's Communication / Plan
-
LDL is at goal continue his home statin, continue focus of treatment of hypertension, CKD, hyperlipidemia
Would continue apixaban and aspirin
Neuro Assessment/Plan
Assessment
Assessment: Very likely a new ischemic stroke to the left occipital region producing right-sided hemianopia.
He is on maximal medical management and do not feel strongly that it would be in the best interest of the patient to switch his antithrombotic regimen, would rather focus on physical therapies and allow time to show stay send of his recovery.
Plan
Recommendations
LDL is at goal continue his home statin, continue focus of treatment of hypertension, CKD, hyperlipidemia
Would continue apixaban and aspirin
Physical therapy occupational therapy evaluations
He should not drive which he understands due to right-sided homonymous hemianopia
We will follow as outpatient.
Subjective/Objective
Subjective Data
Date of Service: December 09, 2023
Objective Data
Vital Signs
Temp Pulse Resp BP Pulse Ox
36.5 C 57 22 130/90 96
12/09/23 11:52 12/09/23 11:52 12/09/23 11:52 12/09/23 11:52 12/09/23 11:52
Lab Results
12/09/23 05:08
12/09/23 05:08
PT 16.0 Sec (11.4-14.6) H 12/07/23 15:41
INR 1.30 12/07/23 15:41
APTT 36.3 Sec (23.4-35.0) H 12/07/23 15:41
Sodium 140 mmol/L (135-145) 12/09/23 05:08
Potassium 4.0 mmol/L (3.5-5.1) 12/09/23 05:08
BUN 26 mg/dl (9-20) H 12/09/23 05:08
Glucose 92 mg/dl (70-99) 12/09/23 05:08
Calcium 8.9 mg/dl (8.4-10.2) 12/09/23 05:08
LDL Cholesterol, Calc 48 mg/dl 12/08/23 04:49
Vitamin B12 495 pg/ml (756-311) 12/08/23 04:49
Patient Allergies
daptomycin Adverse Reaction (Verified 12/07/23 14:37)
Eosinophillia
[2023-12-09 15:00] VITALS: BP 91/74
[2023-12-09 15:53] VITALS: BP 108/67; PULSE 67
[2023-12-09 20:10] VITALS: BP 116/83
[2023-12-09 21:12] VITALS: BP 108/70
[2023-12-09] MEDS: LASIX PO (22:44)
--- NOTE | 2023-12-10 08:20 | W.PN.HOSP.TC ---
Today's Communication/Plan
-
Discharge planning today
Assessment / Plan
Assessment / Plan
Physical exam:
General: No acute distress
HEENT: Normocephalic, Atraumatic and Moist Mucous Membranes
Respiratory: Clear to Auscultation; Negative Wheezes, Rales or Rhonchi
Cardiac: Regular Rhythm and S1/S2
GI: Soft, Nontender and Nondistended
Musculoskeletal: No Clubbing, No Cyanosis and No Edema
Neuro: Awake, Alert and Oriented, right upper extremity weak but prior to this event, presence of right homonymous hemianopsia.
Psych: Calm
Brain MRI:
Acute infarct of the medial left occipital lobe in the left posterior cerebral artery distribution.
A/P:
#Headache with visual field impairment likely acute CVA
#Hx prior chronic lacunar infarcts left thalamus patient was unaware of
-Consult neurology appreciated
-Continue aspirin 81 mg daily, Eliquis 5 mg twice a day, Crestor 40 mg daily
-Check lipid profile, HgbA1c-->LDL 48, HbA1c 5.7
-MRI brain-patient has conditional MRI/AICD [facility]--> results reviewed.
-PT/OT/case management eval
-Reviewed echocardiogram and mild progression of valvulopathy but nothing that needs to be addressed inpatient. Will have him follow-up with his cardiology outpatient.
-Discussed with neurology today on 12/09 to see if anything else that we should be doing upon discharge. Neurology feels he is on max therapy and recommends continue current management. Neuro recommends outpatient ophthalmology evaluation and to
clear him for driving.
CT head:
1. No acute intracranial hemorrhage
2. 7 mm chronic lacunar infarct in the left thalamus
3. Moderate white matter leukoaraiosis in the parietal lobe, frontal lobe
4. Mild diffuse cerebral and cerebellar volume loss
#HTN�benign
-Continue carvedilol 25 mg twice daily
#Chronic right shoulder pain
Patient is in process of being worked up for right shoulder cuff tear has outpatient MRI scheduled in future
#Chronic CHF
I/O, daily weights
-Continue Entresto 1 tab p.o. twice daily
-Continue furosemide 40 mg twice daily spironolactone 12.5 mg daily
-Continue Farxiga 10 mg daily
2D echo 11/27/2022: EF 51%, mild to moderate aortic stenosis, mild TR
#CAD/OK October 2017
#History of prior LAD stent x2
#nonsustained SVT 09/23/2022,
#Cardiac cath 10/02/2022 for NSVT, prior ST OK: Patent stents in the proximal LAD and small distal LAD, luminal irregularities in the RCA
-Continue aspirin, carvedilol 25 mg twice daily, Crestor 40 mg daily
#Pacemaker/AICD [facility] conditional MRI
#D-ata-poyvkdsrsw
-Continue Eliquis 5 mg twice daily, carvedilol 25 mg twice daily
#Carotid stenosis status post CEA
#Overactive bladder
-Continue Myrbetriq 25 mg daily
#BPH
-Continue Flomax 0.4 mg daily
Other PMH:
sleep apnea-does not use CPAP
anxiety
renal calculi
OA
SELDOVIA
skin CA squamous cell
DVT prophylaxis
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
Full code
Anticipated Discharge: Today
Subjective/Interval History
-
Date of Service: December 10, 2023
Patient feels better overall. Vision is improving.
Objective Data
-
Vital Signs:
Vital Signs
Temp Pulse Resp BP Pulse Ox
97.7 F 59 17 108/60 98
12/09/23 20:10 12/10/23 06:00 12/10/23 06:00 12/09/23 21:23 12/09/23 20:10
I&O
12/09/23 12/10/23 12/11/23
06:59 06:59 06:59
Output Total 400 / 400
Balance -400 / -400
[2023-12-10 09:25] VITALS: BP 136/94
[2023-12-10] MEDS: ENTRESTO 24 MG/26 MG 1 TAB PO (09:26)
[2023-12-10] MEDS: CRESTOR 40 MG PO (09:27)
[2023-12-10] MEDS: FARXIGA 10 MG PO (09:27)
[2023-12-10] MEDS: COREG 25 MG PO (09:27)
[2023-12-10] MEDS: MYRBETRIQ EXTENDED RELEASE 25 MG PO (09:27)
[2023-12-10] MEDS: LASIX 40 MG PO (09:27)
[2023-12-10] MEDS: ELIQUIS 5 MG PO (09:30)
[2023-12-10] MEDS: THERAGRAN 1 TABLET PO (09:30)
[2023-12-10] MEDS: ALDACTONE 12.5 MG PO (09:30)
[2023-12-10] MEDS: LOW STRENGTH ASPIRIN 81 MG PO (09:31)
[2023-12-10] MEDS: FLOMAX 0.400000000000000022 MG PO (09:31)
[2023-12-10] MEDS: VITAMIN D3 (cholecalciferol) 25 MCG PO (09:31)
[2023-12-10] MEDS: TYLENOL 650 MG PO (09:42)
[2023-12-10 11:11] VITALS: BP 98/77
--- NOTE | 2023-12-10 12:14 | W.DCSUMMARY ---
Discharge Summary
Discharge Data
Date of Admission: 12/08/23
Date of Discharge: 12/10/23
-
Pending Results: No
Hospital Course
Patient 78 years old male history of PVD, CVA, hypertension, hyperlipidemia, CAD, CKD, TRISTAN, presented to the hospital with sudden onset of right-sided vision loss. Neurology consulted. Stroke workup revealed MRI of the brain consistent with acute
infarct of the medial left occipital lobe and the left posterior cerebral artery distribution. CTA of the head and neck no significant vessel stenosis. There was 50% diameter stenosis at the origin of the left vertebral artery. Echocardiogram no
intracardiac thrombus and progression of valvulopathy noticed that he will follow-up with cardiology as outpatient. Otherwise, patient hemodynamically stable and his symptoms have improved during this hospital stay. Patient has been on
antiplatelets and anticoagulant as well as statins. I reached out to neurology who recommended to continue current management and cleared for discharge today. He participated with PT and OT. He will be discharged in stable condition today.
Discharge duration: 35 minutes
Discharge Plan
-
Patient Disposition: Home with Home Care
Discharge Diagnosis/Procedures: Stroke. Hypertension. Hyperlipidemia. Chronic diastolic congestive heart failure. History of coronary disease. Paroxysmal atrial fibrillation. Moderate aortic stenosis. Mild to moderate aortic regurgitation and
mitral regurgitation.
Diet: Low Cholesterol
Activity: As tolerated
Driving Restrictions: No driving until seen by ophtalmology
Blood Work: Please PCP to order CBC, BMP within 1 week
Referrals:
Ophtalmology, of choice [Other] (2 to 4 weeks)
Jd Ryder MD [Active] - in two to four weeks
Brandon Bowen DO [Family Provider] - in less than 1 week
Prescriptions:
Continued
multivitamin with folic acid [Tab-A-Elma] 1 TABLET tablet
1 tab PO DAILY
spironolactone 25 MG tablet
12.5 mg PO DAILY
furosemide 40 MG tablet
40 mg PO BID
aspirin 81 MG tablet,chewable
81 mg PO DAILY
Eliquis 5 MG tablet
5 mg PO BID
rosuvastatin 40 mg Tablet
40 mg PO DAILY
carvedilol 25 mg tablet
25 mg PO BID
tamsulosin 0.4 mg capsule
0.4 mg PO DAILY
coenzyme Q10 [Co Q-10] 200 mg Capsule
200 mg PO DAILY
cholecalciferol (vitamin D3) [Vitamin D3] 25 mcg (1,000 unit) Tablet
25 mcg PO DAILY
mirabegron [Myrbetriq] 25 mg tablet extended release 24 hr
25 mg PO DAILY
dapagliflozin propanediol [Farxiga] 10 mg tablet
10 mg PO DAILY
Entresto 24-26 mg Tablet
1 tab PO BID
Discharge Orders:
Discharge Patient (As Directed); Ordered 12/10/23
Ordered By: Wan Cook
Discharge Date and Time
Discharge Date/Time: 12/10/23 14:38
Print Language: NORTH KOREAN
--- NOTE | 2023-12-10 13:29 | CM ---
CM following re: discharge planning.
Reviewed pt's chart, met with pt.
Discharge order noted. Pt is aware, expressed his agreement with discharge. IMM reviewed, placed on chart, pt has a copy.
PT and OT recommended outpatient PT/OT. Pt agrees and he stated he will come to outpatient PT/OT. Pt stated his spouse is coming to transport him home.
Please provide a script for outpatient PT/OT.
D/C plan: home with outpatient PT/OT at and family support. Spouse to transport.
[2023-12-10 14:08] VITALS: BP 98/77
== END 2023-12-10 14:38 | disposition home or self-care (01) | DRG 65 ==
LOC: ED 18:25
PROVIDERS: Clinical Nurse Specialist Family Health; ADMITTING PHYSICIAN Internal Medicine; ATTENDING PHYSICIAN Hospitalist; EMERGENCY PHYSICIAN Emergency Medicine; FAMILY PHYSICIAN Family Medicine; OTHER PHYSICIAN Student in an Organized Health Care Education/Training Program
DX: I63.9 Cerebral infarction, unspecified (principal); I13.0 Hypertensive heart and chronic kidney disease with heart failure and stage 1 through stage 4 chronic kidney disease, or unspecified chronic kidney disease; I50.32 Chronic diastolic (congestive) heart failure; I08.0 Rheumatic disorders of both mitral and aortic valves; I73.9 Peripheral vascular disease, unspecified; N18.9 Chronic kidney disease, unspecified; H53.461 Homonymous bilateral field defects, right side; E78.5 Hyperlipidemia, unspecified; G62.9 Polyneuropathy, unspecified; I48.0 Paroxysmal atrial fibrillation; F41.9 Anxiety disorder, unspecified; G47.33 Obstructive sleep apnea (adult) (pediatric); G89.29 Other chronic pain; M25.511 Pain in right shoulder; H54.61 Unqualified visual loss, right eye, normal vision left eye; I25.10 Atherosclerotic heart disease of native coronary artery without angina pectoris; I25.2 Old myocardial infarction; N32.81 Overactive bladder; N40.0 Benign prostatic hyperplasia without lower urinary tract symptoms; H91.90 Unspecified hearing loss, unspecified ear; Z79.01 Long term (current) use of anticoagulants; Z79.82 Long term (current) use of aspirin; Z79.899 Other long term (current) drug therapy; Z95.5 Presence of coronary angioplasty implant and graft; Z87.891 Personal history of nicotine dependence; Z95.0 Presence of cardiac pacemaker; Z98.62 Peripheral vascular angioplasty status; Z85.828 Personal history of other malignant neoplasm of skin; Z87.442 Personal history of urinary calculi; Z86.73 Personal history of transient ischemic attack (TIA), and cerebral infarction without residual deficits; Z86.79 Personal history of other diseases of the circulatory system; Z88.1 Allergy status to other antibiotic agents; Z82.49 Family history of ischemic heart disease and other diseases of the circulatory system
CPT/HCPCS: 70450; 70496; 70498; 70551; 80048; 80061; 82607; 82728; 82746; 82962; 83036; 84443; 85025; 85027; 85576; 85610; 85652; 85730; 93005; 93306; 97166; 99285; Q9967

== ENCOUNTER → 2023-12-17 13:34 | Outpatient (REF) | payer MEDICARE, OTHER, SELFPAY | LOC: MRI 13:34 | PROVIDERS: ATTENDING PHYSICIAN Specialist; FAMILY PHYSICIAN Family Medicine | DX: M25.511 Pain in right shoulder (principal) | CPT/HCPCS: 72141; 73218; 73221 ==

== ENCOUNTER → 2023-12-29 07:49 | Outpatient (REF) | payer MEDICARE, OTHER, SELFPAY | LOC: RAD 07:49 | PROVIDERS: ATTENDING PHYSICIAN Surgery Vascular Surgery; FAMILY PHYSICIAN Family Medicine | DX: I65.23 Occlusion and stenosis of bilateral carotid arteries (principal); R09.89 Other specified symptoms and signs involving the circulatory and respiratory systems; I73.9 Peripheral vascular disease, unspecified | CPT/HCPCS: 93880; 93922; 93925 ==

== ENCOUNTER 2024-01-01 07:46 | Day surgery (SDC) | payer MEDICARE, OTHER, SELFPAY ==
[2024-01-01 07:59] VITALS: BMI 32.1
[2024-01-01 08:09] VITALS: BP 114/74
--- NOTE | 2024-01-01 08:45 | PTCARENOTE ---
MD at bedside and procedure to be cancelled and rescheduled. patient discharged home.
== END 2024-01-01 09:00 | disposition home or self-care (01) ==
LOC: CATH 07:46
PROVIDERS: ATTENDING PHYSICIAN Internal Medicine Cardiovascular Disease; FAMILY PHYSICIAN Family Medicine; OTHER PHYSICIAN Internal Medicine
DX: Z53.9 Procedure and treatment not carried out, unspecified reason (principal)

== ENCOUNTER → 2024-03-01 08:21 | Outpatient (REF) | payer MEDICARE, OTHER, SELFPAY ==
[2024-03-01 09:40] LABS: % Basophils 0.4 % (0-2); % Eosinophils 1.8 % (0-6); % Immature Granulocytes 0.4 % (0-0.5); % Lymphocytes 15.3 % (20.5-51.1); % Monocytes 6.6 % (1.7-9.3); % Neutrophils 75.5 % (42.2-75.2); Absolute Basophils 0.1 10^3/uL (0-0.2); Absolute Eosinophils 0.2 10^3/uL (0-0.7); Absolute Immature Granulocytes 0.1 10^3/uL (0-0.05); Absolute Lymphocytes 1.9 10^3/uL (1.2-3.4); Absolute Monocytes 0.8 10^3/uL (0.1-0.6); Absolute Neutrophils 9.5 10^3/uL (1.4-6.5); Hematocrit 44.7 % (39.0-52.0); Hemoglobin 14.9 g/dL (13.0-18.0); Mean Corp Hgb Conc. 33.3 g/dL (33.0-37.0); Mean Corpuscular Hgb 30.4 pg (27.0-31.0); Mean Corpuscular Volume 91.2 fL (80.0-94.0); Mean Platelet Volume 11.2 fL (7.4-10.4); Nucleated Red Blood Cells % 0 % (-); Platelet Count 149 10^3/uL (130-400); Red Cell Dist. Width 16.6 % (11.5-14.5); White Blood Cell Count 12.5 10^3/uL (4.8-10.8)
[2024-03-01 10:12] LABS: ALT (SGPT) 17 U/L (0-50); AST (SGOT) 24 U/L (17-59); Albumin 4.2 g/dl (3.5-5.0); Alkaline Phosphatase 56 U/L (38-126); Blood Urea Nitrogen 38 mg/dl (9-20); Calcium 9.2 mg/dl (8.4-10.2); Carbon Dioxide 27 mmol/L (22-30); Chloride 106 mmol/L (98-107); Glucose 74 mg/dl (70-99); Potassium 4.2 mmol/L (3.5-5.1); Sodium 146 mmol/L (135-145); Total Bilirubin 1.1 mg/dl (0.2-1.3); Total Protein 6.8 g/dl (6.3-8.2); eGFR 56.58
== END ==
LOC: SDSPAT 08:21
PROVIDERS: ATTENDING PHYSICIAN Internal Medicine Cardiovascular Disease; FAMILY PHYSICIAN Family Medicine; OTHER PHYSICIAN Internal Medicine
DX: Z01.818 Encounter for other preprocedural examination (principal); Z95.810 Presence of automatic (implantable) cardiac defibrillator; I10 Essential (primary) hypertension; I25.5 Ischemic cardiomyopathy; I47.29 Other ventricular tachycardia
CPT/HCPCS: 36415; 80053; 85025; 93005

== ENCOUNTER → 2024-03-12 07:47 | Day surgery (SDC) | payer MEDICARE, OTHER, SELFPAY ==
[2024-03-01 08:37] VITALS: BMI 32.1
[2024-03-12] VITALS (13 sets, daily range): BP systolic 114–150; BP diastolic 74–105
--- NOTE | 2024-03-12 10:08 | W.ICD.CONTRA ---
Post ICD/SERVICE AIDE-D
-
History of CA?: Yes
LV Function
Left ventricular function study result?: Ejection Fraction >/= 40%
ACEI/ARB/ARNI
Patient already on ACEI/ARB/ARNI: Yes
Beta-Darío
Patient already on Beta Darío: Yes
--- NOTE | 2024-03-12 11:36 | ITS.CL.ICD ---
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
Implantable Cardioverter Defibrillator
Procedure Report:
Date of Procedure: March 12, 2024.
Procedures: ICD Pulse Generator Explantation and ICD Pulse Generator Implantation.
Indication: ICD at the elective replacement indicator. The ICD was placed in 2019 at an outside hospital for primary prevention of sudden at that time he had reduced LVEF and a prior anterior [place]. Now he has chronic heart failure with improved
LVEF (50-55% by echo dated 12/08/2023) and permanent atrial fibrillation. The patient's life expectancy exceeds one year. Heart failure class II. Heart failure duration is more than 4 years.
Performing physician: Jacques Garces MD, [facility].
Implant: ICD Pulse Generator: Sosa; Model# [id number]; Serial# [id number].
Explanted ICD Pulse Generator (Implanted 09/14/2018): Sosa; Model 3369-40Q; Serial# [id number].
Retained Leads (Implanted 09/14/2018):
RA: Sosa; Model# [id number]; Serial# [id number].
RV: Sosa; Model# [id number]; Serial# [id number].
LV: Sosa; Model# [id number]/86; Serial# [id number].
Technique: A time-out was performed. The procedure site was identified. The anesthesia service anesthetized the patient. Preoperative cefazolin was administered before the skin incision. The patient was prepped and draped in the usual fashion. Local
anesthetic was applied to the left pre-pectoral subcutaneous tissue. A 3-inch incision was made over the pulse generator with the PlasmaBlade. The capsule was entered with PlasmaBlade cautery. The old ICD pulse generator was explanted. No cautery
was applied to the lead system. The leads were appropriately attached to the new ICD pulse generator. The pocket was irrigated with an antibiotic solution. Hemostasis was excellent. The device and leads were placed in the pocket. The incision was
closed in three layers with an absorbable suture. Steri-strips and a silver impregnated dressing were applied. The estimated blood loss was 5 mL. There were no complications. No fluoroscopy was used.
Lead Analysis:
RA lead: P: 0.6 mV; Threshold: n/a; Impedance: 440 ohms.
RV lead: R: 6.4 mV; Threshold: 0.75 V @ 0.4 ms; Impedance: 340 ohms.
LV lead: R: n/a; Threshold: 1.25 V @ 0.4 ms; Impedance: 550 ohms. LV lead is a quadripolar lead.
Final Programming: VT 181 bpm; VF 240 bpm; Ronnell: VVIR 60-130 bpm.
Conclusion: Uncomplicated BiV ICD pulse generator change. The ICD system is [ ] MRI safe/conditional.
Recommendation: Routine post ICD care.
cc: Rony Goode MD and Brandon Bowen DO.
== END | disposition home or self-care (01) ==
LOC: CATH 07:47
PROVIDERS: ATTENDING PHYSICIAN Internal Medicine Cardiovascular Disease; FAMILY PHYSICIAN Family Medicine; OTHER PHYSICIAN Internal Medicine
DX: Z45.02 Encounter for adjustment and management of automatic implantable cardiac defibrillator (principal); I13.0 Hypertensive heart and chronic kidney disease with heart failure and stage 1 through stage 4 chronic kidney disease, or unspecified chronic kidney disease; I25.10 Atherosclerotic heart disease of native coronary artery without angina pectoris; I50.32 Chronic diastolic (congestive) heart failure; I25.5 Ischemic cardiomyopathy; I25.2 Old myocardial infarction; Z79.01 Long term (current) use of anticoagulants; I48.19 Other persistent atrial fibrillation; Z79.899 Other long term (current) drug therapy; Z87.820 Personal history of traumatic brain injury; N18.30 Chronic kidney disease, stage 3 unspecified; Z87.891 Personal history of nicotine dependence; Z95.5 Presence of coronary angioplasty implant and graft; Z79.82 Long term (current) use of aspirin; E78.5 Hyperlipidemia, unspecified; H53.9 Unspecified visual disturbance; I69.898 Other sequelae of other cerebrovascular disease; N40.0 Benign prostatic hyperplasia without lower urinary tract symptoms
CPT/HCPCS: 33264; 93005; C1882

== ENCOUNTER → 2024-06-05 09:09 | Outpatient (REF) | payer MEDICARE, OTHER, SELFPAY | LOC: RCS 09:09 | PROVIDERS: ATTENDING PHYSICIAN Nurse Practitioner; FAMILY PHYSICIAN Family Medicine | DX: I50.32 Chronic diastolic (congestive) heart failure (principal); I35.0 Nonrheumatic aortic (valve) stenosis; I48.19 Other persistent atrial fibrillation | CPT/HCPCS: 93306 ==

== ENCOUNTER → 2024-07-02 07:59 | Outpatient (REF) | payer MEDICARE, OTHER, SELFPAY ==
[2024-07-02] MEDS: LEXISCAN 0.4 MG IV (10:07)
[2024-07-02] MEDS: FLUSH (NSS) 1 FLUSH IV (10:08)
== END ==
LOC: RCS 07:59
PROVIDERS: ATTENDING PHYSICIAN Nurse Practitioner; FAMILY PHYSICIAN Family Medicine
DX: Z95.810 Presence of automatic (implantable) cardiac defibrillator (principal); I50.22 Chronic systolic (congestive) heart failure
CPT/HCPCS: 78452; 93017; A9500; J2785

== ENCOUNTER 2024-11-05 12:50 | Inpatient (IN) | payer MEDICARE, SELFPAY ==
[2024-11-05] VITALS (9 sets, daily range): BP systolic 110–176; BP diastolic 63–88; BMI 29.4; BMI 29.3
--- NOTE | 2024-11-05 09:48 | ED.GENMED ---
History of Present Illness
General
Chief Complaint: Chest Pain
Source: patient
Exam Limitations: none
Time Seen by Provider: 11/05/24 09:47
History of Present Illness
History of Present Illness:
79yoM with a history of coronary artery disease s/p PCI, atrial fibrillation on Eliquis, CHF with last EF of 40-45%, AICD/pacemaker, prior CVA, hypertension, hyperlipidemia, and CKD presenting for evaluation of chest pain. Patient reports waking up
from sleep around 4 AM this morning with a terrible feeling in his chest. He sat up in bed and the symptoms seem to resolve and he was able to go back to sleep. He woke up again at 6 AM with central chest pressure as well as heaviness and
paresthesias in both arms. He also reports feeling nauseous and lightheaded. No diaphoresis. Patient did have some shortness of breath while in the car driving to the hospital. His pain seemed to improve over the last 10 to 15 minutes but is
still present. Symptoms feel similar to his prior heart attack in 2018. Patient follows with Dr. Goode and was scheduled to have a cardiology appointment this morning. He had a nuclear stress test in June 2024 which was normal.
Past History
Past History
ED Past Medical History: Arrthythmia (Atrial fib), CAD, CHF, HTN, ID and Other (KIDNEY STONE)
ED Past Surgical History: Cardiac (AICD/pacemaker placement, Stents x 2) and Orthopedic
Social History
Tobacco: Former smoker
Alcohol: None
Drug: None
Personal:
Living: with family
Employment: Employed
Family History
Family History: Other
Phy Exam
General Physical Exam
General Presentation: well appearing
General Skin: warm and dry
General Habitus: normal and elderly
General Mental: alert
ENT Exam
ENT Exam: normocephalic
Cardiovascular Exam
Cardiovascular Exam: regular rate/rhythm, no edema, normal peripheral pulses (2+ radial pulses bilaterally) and systolic murmur
Pulmonary Exam
Pulmonary Exam: lungs clear, no respiratory distress, no rales, no crackles, no rhonchi and no wheezing
Neurological Exam
Neurological Exam: alert
[place] Coma Scale
Eye Opening: Spontaneous
Verbal Response: Oriented
Motor Response: Obeys Commands
GCS Total Score: 15
Skin Exam
Skin Exam: normal color and warm/dry
Psychiatric Exam
Psychiatric Exam: normal mood/affect
Scores
Heart Score for Chest Pain Patients
STEMI patient?: No
History: Highly Suspicious
ECG: Nonspecific Repolarization
Age: >/= 65 years
Risk Factors: >/= 3 Risk Factors or History of CAD
Troponin: >1 - <3 x Normal Limit
Heart Score for Chest Pain Patients: 8
Heart Score Risk: 72.7 % MACE over next 6 weeks
Course
Orders/Labs/Results
Orders:
Orders
11/05/24 09:03
Electrocardiogram (*1) Urgent
Reason for Study: Chest Pain
EKG- Treatment ONCE
11/05/24 09:58
Complete Blood Count/With Diff Urgent
Comprehensive Metabolic Panel Urgent
Troponin I Urgent
11/05/24 10:00
Cardiac Monitoring- Treatment ONCE
Interrogate Pacemaker- Treatment ONCE
Aspirin Chewable [Low Strength Aspirin] 81 mg PO NOW STA
Nitroglycerin Sublingual [Nitrostat (Sublingual)] 0.4 mg SL NOW STA
CR Chest - 2 Views Urgent
Comment:
Reason For Exam: CP
11/05/24 10:06
Aspirin Chewable [Low Strength Aspirin] 243 mg PO NOW STA
11/05/24 11:00
Consult Cardiology [CARDIOLOGY CONSULT] Urgent
Consulting Provider: Sadie Dominguez
Was physician already notified: Yes
Abnormal Lab Results
11/05/24
09:58
RDW 15.0 H %
(11.5-14.5)
MPV 11.0 H fL
(7.4-10.4)
Absolute Neuts (auto) 7.7 H 10^3/uL
(1.4-6.5)
Absolute Monos (auto) 0.7 H 10^3/uL
(0.1-0.6)
Lymphocytes % 19.0 L %
(20.5-51.1)
Chloride 108 H mmol/L
(98-107)
BUN 38 H mg/dl
(9-20)
Glucose 117 H mg/dl
(70-99)
Troponin I 0.037 H* ng/ml
11/05/24 09:58
11/05/24 09:58
Vital Signs
Initial and Last Documented VS:
Initial Vital Signs
Temp Pulse Resp BP Pulse Ox
98.3 F 70 16 176/88 99
11/05/24 09:12 11/05/24 09:12 11/05/24 09:12 11/05/24 09:12 11/05/24 09:12
Last Documented Vital Signs
Temp Pulse Resp BP Pulse Ox
98.3 F 70 17 113/77 97
11/05/24 09:12 11/05/24 11:00 11/05/24 11:00 11/05/24 10:14 11/05/24 11:00
MDM/Problems Addressed
Differential Diagnosis Includes:
79yoM here with chest pain. Woke up this morning with central chest pressure with bilateral arm heaviness/paresthesias. Hx of prior ID and this feels the same. He is hypertensive with otherwise stable vitals. He is non-toxic appearing. Differential
diagnosis includes but is not limited to: angina, ACS, esophagitis, less likely but consider aortic dissection
Initial ED plan: Check cardiac labs, EKG, CXR, and interrogate pacemaker. Patient took a baby aspirin this morning. Will order 243mg aspirin and trial dose of nitroglycerin.
*EKG
Interpreted by ED Provider?: Yes
EKG Intrepretation Date: 11/05/24
Heart Rate: 70
Rate: normal
Rhythm: ventricular paced
[place]: left axis deviation
Ischemia: no ischemia
*Critical Care Note
Total Time (30-74mins, 75-104mins- exclusive of procedures): Not Applicable
Update Note
Update Note:
EKG shows ventricular paced rhythm. Troponin mildly elevated at 0.037. No events on pacemaker interrogation. Chest x-ray negative for acute findings. Patient is asymptomatic on reassessment and chest pain completely resolved. Cardiology team
notified and patient admitted for further management.
ED Attending Note
-
Portions of this chart may have been created with voice recognition software.� Occasional wrong word or��sound alike� substitutions may have occurred due to the inherent limitations of voice recognition software.
Discharge Plan
Departure
Patient Disposition: Admit
Date of Disposition: 11/05/24
Time of Disposition: 11:00
Presentation/result/management discussed w/ accepting MD/DO: Hospitalist
Discharge Problem:
Chest pain, Elevated troponin
Prescriptions:
No Action
multivitamin with folic acid [Tab-A-Elma] 1 TABLET tablet
1 tab PO DAILY
spironolactone 25 MG tablet
12.5 mg PO DAILY
furosemide 40 MG tablet
40 mg PO DAILY
aspirin 81 MG tablet,chewable
81 mg PO DAILY
Eliquis 5 MG tablet
5 mg PO BID
rosuvastatin 40 mg Tablet
40 mg PO DAILY
carvedilol 25 mg tablet
12.5 mg PO BID
tamsulosin 0.4 mg capsule
0.4 mg PO DAILY
cholecalciferol (vitamin D3) [Vitamin D3] 25 mcg (1,000 unit) Tablet
25 mcg PO DAILY
mirabegron [Myrbetriq] 25 mg tablet extended release 24 hr
50 mg PO DAILY
dapagliflozin propanediol [Farxiga] 10 mg tablet
10 mg PO DAILY
Entresto 49-51 mg Tablet
1 tab PO BID
acetaminophen [Tylenol Extra Strength] 500 mg Tablet
1,500 mg PO DAILYPRN PRN (Reason: mild pain)
digoxin 125 mcg (0.125 mg) Tablet
125 mcg PO DAILY
Referrals:
Brandon Bowen DO [Family Provider] -
Interventions
Interventions:
*Risk Screen - Suicide Last Done: 11/05/24 09:12
*Neglect/Abuse Screening Last Done: 11/05/24 09:12
ED- Cardiac Assessment Last Done: 11/05/24 10:04
Discharge Date and Time
Print Language: CENTRAL AFRICAN
[2024-11-05 10:05] LABS: % Basophils 0.4 % (0-2); % Eosinophils 2.8 % (0-6); % Immature Granulocytes 0.3 % (0-0.5); % Monocytes 6.3 % (1.7-9.3); % Neutrophils 71.2 % (42.2-75.2); Absolute Eosinophils 0.3 10^3/uL (0-0.7); Absolute Monocytes 0.7 10^3/uL (0.1-0.6); Absolute Neutrophils 7.7 10^3/uL (1.4-6.5); Hematocrit 47.7 % (39.0-52.0); Hemoglobin 15.9 g/dL (13.0-18.0); Mean Corp Hgb Conc. 33.3 g/dL (33.0-37.0); Mean Corpuscular Hgb 30.9 pg (27.0-31.0); Mean Corpuscular Volume 92.8 fL (80.0-94.0); Nucleated Red Blood Cells % 0 % (-); Platelet Count 164 10^3/uL (130-400); Red Blood Cell Count 5.14 10^6/uL (4.70-6.10); White Blood Cell Count 10.8 10^3/uL (4.8-10.8)
[2024-11-05] MEDS: NITROSTAT (SUBLINGUAL) 0.4 MG SL (10:07)
[2024-11-05] MEDS: LOW STRENGTH ASPIRIN 243 MG PO (10:08)
[2024-11-05 10:28] LABS: ALT (SGPT) 15 U/L (0-50); AST (SGOT) 22 U/L (17-59); Albumin 4.6 g/dl (3.5-5.0); Alkaline Phosphatase 62 U/L (38-126); Blood Urea Nitrogen 38 mg/dl (9-20); Calcium 9.6 mg/dl (8.4-10.2); Carbon Dioxide 26 mmol/L (22-30); Chloride 108 mmol/L (98-107); Estimated Creatinine Clearance 49 ml/min; Glucose 117 mg/dl (70-99); Potassium 4.6 mmol/L (3.5-5.1); Sodium 145 mmol/L (135-145); Total Bilirubin 0.8 mg/dl (0.2-1.3); Total Protein 7.3 g/dl (6.3-8.2); eGFR > 60.00
[2024-11-05 10:40] LABS: Troponin I 0.037 ng/ml
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
--- NOTE | 2024-11-05 12:35 | W.PN.UPDATE ---
Update Note
Progress Note Update
This is an addendum to the H&P written by Alix Boykin on 11/05/2024.� Patient seen and examined independently with [employer]INE [employer]ESSER.
79-year-old male past medical history of ischemic cardiomyopathy with ICD,HFimpEF, CAD history of stents, persistent atrial fibrillation on Eliquis, hypertension, hyperlipidemia, carotid artery stenosis status post left carotid endarterectomy, CKD
3, BPH, traumatic brain injury, CVA with residual peripheral visual deficits presenting for chest pain described as pressure with radiation to both arms with nausea and lightheadedness and shortness of breath later.
Patient given nitroglycerin sublingual with improvement in symptoms.
Vital signs normal.� EKG shows ventricular paced rhythm.� Troponin of 0.037.� Labs otherwise unremarkable.
Aspirin given, heparin drip started.
Concern for NSTEMI.� Continue aspirin, heparin drip in place of Eliquis.� Trend troponins.� Cardiology consulted.��Plan for cath Friday.�
[2024-11-05] MEDS: HEPARIN 4000 UNITS IV (12:42)
[2024-11-05] MEDS: HEPARIN 25000 UNITS/250 ML IV (12:42)
[2024-11-05 13:21] LABS: APTT 33.9 Sec (23.4-35.0)
[2024-11-05 13:53] LABS: Glycohemoglobin (HgbA1c) 5.6 % (4.0-5.6)
[2024-11-05 15:03] LABS: Troponin I 0.093 ng/ml
--- NOTE | 2024-11-05 18:39 | PTCARENOTE ---
Received patient from the ED at 1720 with IV heparin infusing at 1000 units/hr. Vpaced on telemetry, denies any chest pain at this time. Admission assessment completed, patient is planned for a cardiac cath on Friday. Call santiago in reach, patient is
eating dinner, aware to call for nurse with assistance to the bathroom, plans to use a urinal for now.
[2024-11-05 19:48] LABS: APTT 71.4 Sec (23.4-35.0)
[2024-11-05 20:01] LABS: Troponin I 0.245 ng/ml
[2024-11-05] MEDS: ENTRESTO 49 MG/51 MG 1 TAB PO (20:20)
[2024-11-05] MEDS: COREG 12.5 MG PO (20:24)
--- NOTE | 2024-11-05 20:30 | PTCARENOTE ---
Assumed care on pt at 1900, aaox3, denies chest pain or discomfort, denies SOB, O2 sat 98% RA. IV heparin infusing at 1000 units/hr at start of shift, increased to 1100 per ptt assessment. V-paced on the monitor, HR 70's. BP stable. Call santiago within
reach, POC ongoing.
[2024-11-06 02:10] VITALS: BP 130/82
[2024-11-06 02:16] LABS: % Basophils 0.5 % (0-2); % Eosinophils 2.6 % (0-6); % Immature Granulocytes 0.3 % (0-0.5); % Lymphocytes 22.5 % (20.5-51.1); % Monocytes 7.4 % (1.7-9.3); % Neutrophils 66.7 % (42.2-75.2); Absolute Basophils 0.1 10^3/uL (0-0.2); Absolute Eosinophils 0.3 10^3/uL (0-0.7); Absolute Lymphocytes 2.5 10^3/uL (1.2-3.4); Absolute Monocytes 0.8 10^3/uL (0.1-0.6); Absolute Neutrophils 7.4 10^3/uL (1.4-6.5); Hematocrit 44.1 % (39.0-52.0); Hemoglobin 14.7 g/dL (13.0-18.0); Mean Corp Hgb Conc. 33.3 g/dL (33.0-37.0); Mean Corpuscular Hgb 30.8 pg (27.0-31.0); Mean Corpuscular Volume 92.5 fL (80.0-94.0); Nucleated Red Blood Cells % 0 % (-); Platelet Count 142 10^3/uL (130-400); Red Blood Cell Count 4.77 10^6/uL (4.70-6.10); Red Cell Dist. Width 14.9 % (11.5-14.5); White Blood Cell Count 11.1 10^3/uL (4.8-10.8)
[2024-11-06 02:32] LABS: APTT 75.8 Sec (23.4-35.0)
[2024-11-06 02:43] LABS: Troponin I 0.317 ng/ml
[2024-11-06 03:12] LABS: ALT (SGPT) 13 U/L (0-50); AST (SGOT) 27 U/L (17-59); Albumin 3.5 g/dl (3.5-5.0); Alkaline Phosphatase 61 U/L (38-126); Blood Urea Nitrogen 33 mg/dl (9-20); Calcium 9.2 mg/dl (8.4-10.2); Carbon Dioxide 25 mmol/L (22-30); Chloride 109 mmol/L (98-107); Estimated Creatinine Clearance 52 ml/min; HDL Cholesterol 29 mg/dl; LDL Cholesterol, Calculated 32 mg/dl; Magnesium 2.3 mg/dl (1.6-2.3); Sodium 143 mmol/L (135-145); Total Cholesterol 95 mg/dl (50-199); Total Protein 6.2 g/dl (6.3-8.2); Triglyceride 172 mg/dl (10-149); Very Low Density Lipoprotein 34 mg/dl (0-30); eGFR > 60.00
[2024-11-06 03:24] LABS: Glucose 100 mg/dl (70-99); Total Bilirubin 0.8 mg/dl (0.2-1.3)
--- NOTE | 2024-11-06 05:36 | PTCARENOTE ---
Pt remained pain free overnight, Heparin infusing at 1100unit/hour, trop trending. Pox 96-97 %. Urinating without issues, using urinal at bedside.
[2024-11-06 06:00] VITALS: BMI 29.2
[2024-11-06] MEDS: TYLENOL 650 MG PO ×3 (06:37→19:49)
[2024-11-06 06:54] VITALS: BP 114/76
[2024-11-06] MEDS: THERAGRAN 1 TABLET PO (08:40)
[2024-11-06] MEDS: FARXIGA 10 MG PO (08:40)
[2024-11-06] MEDS: CRESTOR 40 MG PO (08:40)
[2024-11-06] MEDS: COREG 12.5 MG PO (08:40)
[2024-11-06] MEDS: ENTRESTO 49 MG/51 MG 1 TAB PO ×2 (08:41→19:49)
[2024-11-06] MEDS: MYRBETRIQ EXTENDED RELEASE 50 MG PO (08:41)
[2024-11-06] MEDS: LASIX 40 MG PO (08:41)
[2024-11-06] MEDS: VITAMIN D3 (cholecalciferol) 25 MCG PO (08:41)
[2024-11-06] MEDS: FLOMAX 0.4 MG PO (08:41)
[2024-11-06] MEDS: LOW STRENGTH ASPIRIN 81 MG PO (08:42)
[2024-11-06] MEDS: ALDACTONE 12.5 MG PO (08:42)
--- NOTE | 2024-11-06 08:48 | W.PN.HOSP.TC ---
Today's Communication/Plan
-
Continue current care
Assessment / Plan
Assessment / Plan
Gen-AAOx3, NAD
HEENT-NC, AT, anicteric, clear oral mm
Neck-supple
CV-reg, no M, +S1/S2
Lungs-clear B/L
Abd-soft, NT, ND
Ext-no edema
Musculoskeletal-no cyanosis, clubbing
Skin-warm and dry
Neuro-grossly non-focal
Psych-calm, cooperative
ACS/NSTEMI -currently stable, denies chest discomfort. Last troponin 0.31, repeat pending. Continue IV heparin. Cardiology following. Anticipate catheterization Friday.
Has 2 prior stents. States he has been compliant with his home medications. Does not get exertional chest discomfort.
Chronic heart failure midrange EF -stable.
ICD
essential hypertension -stable.
Hyperlipidemia -rosuvastatin.
Persistent atrial fibrillation -Eliquis on hold for upcoming catheterization. Continue IV heparin.
BPH
overactive bladder
History of stroke
Carotid stenosis -left CEA.
Full code
Anticipated Discharge: > 48 hours
Subjective/Interval History
-
Date of Service: November 06, 2024
Patient seen and examined. No complaints currently.
Objective Data
-
Labs:
Laboratory Results
11/06/24 11/06/24
02:04 08:45
WBC 11.1 H
Hgb 14.7
Hct 44.1
Plt Count 142
APTT 75.8 H Pending
Sodium 143
Potassium 4.0
Chloride 109 H
Carbon Dioxide 25
BUN 33 H
Creatinine 1.1
Glucose 100 H
Calcium 9.2
Total Bilirubin 0.8
AST 27
ALT 13
Alkaline Phosphatase 61
Vital Signs:
Vital Signs
Temp Pulse Resp BP Pulse Ox
97.6 F 77 20 114/76 96
11/06/24 06:54 11/06/24 08:00 11/06/24 06:54 11/06/24 06:54 11/06/24 06:54
I&O
11/05/24 11/06/24 11/07/24
06:59 06:59 06:59
Intake Total 592 / 592
Output Total 600 / 600
Balance -8 / -8
Review of Systems
-
History Source: Patient
All other systems: Reviewed and negative
[2024-11-06 09:42] LABS: Troponin I 0.343 ng/ml
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
[2024-11-06 11:41] VITALS: BP 113/81
[2024-11-06] MEDS: LANOXIN 125 MCG PO (12:29)
[2024-11-06] MEDS: HEPARIN 25000 UNITS/250 ML IV (12:29)
--- NOTE | 2024-11-06 12:53 | PTCARENOTE ---
pt trop 0.343, notified dr. giang. continue to trend. pt is paced on the monitor, hr in the 70s, vss. pt denies cp/sob at this time. pt educated on plan of care and pt verbalized understanding. call santiago within reach.
[2024-11-06 15:43] VITALS: BP 117/69
[2024-11-06 16:25] LABS: Troponin I 0.209 ng/ml
--- NOTE | 2024-11-06 17:33 | PTCARENOTE ---
pt continues to be paced on the monitor, hr in the 70s, vss. pt offers no complaints at this time. pt denies cp/sob. pt ambulating in room and tolerating well. heparin gtt running per protocol. pt educated on plan of care and pt verbalized
understanding. call santiago within reach.
[2024-11-06 19:12] VITALS: BP 113/76
[2024-11-06] MEDS: COREG 25 MG PO (19:49)
[2024-11-06 22:14] VITALS: BP 117/72
[2024-11-07] VITALS (32 sets, daily range): BP systolic 90–182; BP diastolic 56–96
[2024-11-07] MEDS: NITROSTAT (SUBLINGUAL) 0.4 MG SL ×4 (03:00→05:52)
[2024-11-07] MEDS: TYLENOL 650 MG PO (03:14)
[2024-11-07 03:26] LABS: Hematocrit 45.6 % (39.0-52.0); Hemoglobin 15.4 g/dL (13.0-18.0); Mean Corp Hgb Conc. 33.8 g/dL (33.0-37.0); Mean Corpuscular Hgb 30.9 pg (27.0-31.0); Mean Corpuscular Volume 91.4 fL (80.0-94.0); Mean Platelet Volume 11.1 fL (7.4-10.4); Platelet Count 146 10^3/uL (130-400); Red Blood Cell Count 4.99 10^6/uL (4.70-6.10); Red Cell Dist. Width 14.8 % (11.5-14.5); White Blood Cell Count 9.3 10^3/uL (4.8-10.8)
[2024-11-07 03:51] LABS: APTT 72.9 Sec (23.4-35.0)
[2024-11-07] MEDS: MORPHINE SULFATE IV (03:58)
[2024-11-07 04:07] LABS: Troponin I 0.117 ng/ml
--- NOTE | 2024-11-07 04:15 | PTCARENOTE ---
Addendum entered by Gogo Marie RN 11/07/24 04:27:
Troponin resulted 0.117, Shanika Villalobos notified, no new orders at this time.
Original Note:
Pt. rang call santiago at 0245 and complained of substernal chest pain, level 8 out of 10, described as achy pressure - radiating into left arm. BP 154/84, V-paced in the 70's on the monitor, pulse ox 98% RA. Also complaining of some SOB. 2L O2 NC
applied and EKG completed. Shanika Villalobos, hospitalist [place] notified, troponin added to AM labs and drawn, nitro SL x 1 given with complete resolution of chest pain within 10 minutes. Of note BP did drop to 97/68 post nitro but bounced back up to 111/65
& then 111/68 15 minutes later without intervention (IVF bolus ordered by Rosemary but then instructed not to give). Pt. is currently chest pain free and resting quietly.
[2024-11-07 04:22] LABS: Blood Urea Nitrogen 29 mg/dl (9-20); Calcium 9.1 mg/dl (8.4-10.2); Carbon Dioxide 25 mmol/L (22-30); Chloride 106 mmol/L (98-107); Estimated Creatinine Clearance 57 ml/min; Glucose 100 mg/dl (70-99); Magnesium 2.3 mg/dl (1.6-2.3); Sodium 141 mmol/L (135-145); eGFR > 60.00
[2024-11-07] MEDS: MORPHINE SULFATE 2 MG IV (04:55)
[2024-11-07] MEDS: MAALOX 30 ML PO (05:01)
[2024-11-07] MEDS: PROTONIX IV 40 MG IV (05:25)
[2024-11-07] MEDS: NSS (PRESERVATIVE FREE) 10 ML IV (05:26)
[2024-11-07] MEDS: NSS 250 IV (05:48)
[2024-11-07] MEDS: XANAX 0.25 MG PO (05:55)
--- NOTE | 2024-11-07 05:57 | W.PN.UPDATE ---
Update Note
Progress Note Update
patient experiencing intermittent CP overnight getting progressively worse. Troponin continues to trend downward. Heparin infusion continues. NTG SL given but does make him hypotensive into 90s systolic. NS IVF bolus added. Reviewed with Dr. Garces
as well as updated EKG and Cardiac catheterization team called in. Updated Dawn his and she will come in. Patient now nauseated compazine iv x1.
[2024-11-07] MEDS: COMPAZINE 5 MG IV (06:06)
[2024-11-07] MEDS: NSS 1000 IV (06:29)
[2024-11-07 07:02] LABS: Troponin I 0.092 ng/ml
[2024-11-07 07:21] LABS: ACT-LR - POC 329 Seconds (116-155)
--- NOTE | 2024-11-07 07:29 | PTCARENOTE ---
Pt. rang santiago again at 0445, complaining of substernal chest pain level 10 out of 10, radiating down left arm and into left jaw, again described as pressure/aching/tingling with shortness of breath. BP 165/96, V- paced 70's on the monitor, pulse ox
98% on 2L. EKG completed, Shanika CORREANP notified, total of 3 doses nitro SL as well as morphine 2 mg IV given with pain level only decreasing to a 7 at best. Pt. increasingly agitated/restless, nauseous (did not vomit), diaphoretic. SBP dropping
to 90's post nitro admin. IVF bolus hung per Shanika Villalobos, with SBP increasing back to the low 100's. Dr. Garces notified of pt.'s status by Rosemary, decision made by cardiology to activate bundle tier and labeler. Report given to bundle tier and labeler nurse, pt. taken to bundle tier and labeler
at approx. 0620.
--- NOTE | 2024-11-07 08:02 | ITS.CL.CATH ---
Utility Inspector - Catheterization
Cardiac Catheterization
Procedure Report:
LEFT HEART CATH AND CORONARY INTERVENTION
Date of Procedure: November 07, 2024
Referring: Dr. Jacques Garces
PROCEDURES:
1. Left heart catheterization with coronary and single-plane left ventriculography
2. Successful stenting of 100% occluded mid RCA within previously placed stent. The vessel underwent re-stenting with a 3.5 x 18 mm Umberto stent that was postdilated with a 3.75 mm noncompliant balloon to 18 mckinley
3. Intravascular ultrasound
INDICATION: This is a 79-year-old gentleman with a prior history of coronary artery disease and stenting of the ostial and mid LAD in 2018 in the setting of an evolving myocardial infarction. He apparently had stenting of the ramus and the mid
right coronary artery at some point between 2017 and 2022. We do not have records of this intervention. He presented to [facility] with chest discomfort and ruled in for non-ST segment elevation myocardial infarction with a troponin peak
of 0.343. He has a paced cardiac rhythm and was chest pain-free until last evening when he developed recurring anginal symptoms. His electrocardiogram was notable for inferior ST changes in spite of the paced cardiac rhythm. Medical therapy
failed to improve his symptoms and he is now referred for emergent coronary angiography.
ACCESS: Right common femoral artery, 6 Albanian sheath using ultrasound guidance and micropuncture technique
HEMODYNAMICS (mmHg):
AO (s/d, m) : 137/72
LV (s/d) : 134/12
LVEDP : 19
CORONARY FINDINGS
Dominance: Right
LEFT MAIN: Normal
LEFT ANTERIOR DESCENDING: The stent at the origin of the LAD appears widely patent. The mid LAD stent spans the origin of the only sizable diagonal branch and appears widely patent.
RAMUS: There appears to be a stent near the origin of the ramus intermedius which appears patent
CIRCUMFLEX: The circumflex is a nondominant vessel supplying a single obtuse marginal branch which is widely patent
RIGHT CORONARY: The right coronary artery is a dominant vessel. There is a stent in the mid right coronary artery and the vessel is noted to be occluded proximal to the stented segment
VENTRICULOGRAPHY: Left ventriculography is performed in an RUIZ projection. The digital single-plane left ventricular ejection fraction is visually estimated at 40% with posterior basal akinesis
ANGIOPLASTY PROCEDURE DETAIL: Upon review of the diagnostic catheterization films the decision was made to proceed with percutaneous revascularization of the 100% occluded mid RCA. Intravenous heparin was administered and the ACT was followed
throughout the procedure. The origin of the right coronary artery was cannulated with a 6 Albanian JR4 guiding catheter and a short BMW guidewire easily cross the occluded segment and was advanced into the distal right coronary artery. Antegrade
flow was restored into the right coronary artery and angiography revealed a focal stenosis in the mid proximal one third of the previously placed stent. Balloon predilation was performed with a 2.5 x 12mm Euphora balloon. The vessel underwent
successful stenting with placement of a 3.5 x 18 mm Lagrange stent that was implanted at nominal pressures. Intravascular ultrasound was then performed. The stented segment appeared mildly undersized with the true lumen approaching 4.0 mm. The
stented segment was postdilated with a 3.75 mm noncompliant balloon between 14 and 18 mckinley with a nice angiographic result
SEDATION: The patient received morphine and Xanax prior to arrival and during the procedure received fentanyl. 40 minutes of procedural sedation was utilized. An independent registered medical transcriptionist was present to assist with and help manage the patient's
level of consciousness and physiologic status
RADIATION SUMMARY: Fluoro Time (min): 10.6, Dose (mGy): 755, DAP (Gy.cm2) : 71.8
CONCLUSIONS
1. Late stent thrombosis in the proximal one third of the previously placed mid RCA stent. Successful balloon angioplasty and restenting of the right coronary artery with a 3.5 x 18 mm Lagrange stent that was postdilated with a 3.75 mm noncompliant
balloon to high pressures. Post dilation was guided by IVUS imaging
2. Patent LAD and ramus stents
3. Dilated cardiomyopathy with posterior basal akinesis
RECOMMENDATIONS
1. The patient received a 600 mg loading dose of clopidogrel at the conclusion of the interventional procedure
2. Aspirin, clopidogrel, and apixaban triple therapy for 1-2 weeks followed by clopidogrel and apixaban
3. Will trend serial troponin
4. We will resume apixaban at this evening's dose
Copy to: Dr. Jacques Garces
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
[2024-11-07] MEDS: MYRBETRIQ EXTENDED RELEASE 50 MG PO (09:20)
[2024-11-07] MEDS: THERAGRAN 1 TABLET PO (09:20)
[2024-11-07] MEDS: CRESTOR 40 MG PO (09:20)
[2024-11-07] MEDS: ENTRESTO 49 MG/51 MG 1 TAB PO ×2 (09:20→20:32)
[2024-11-07] MEDS: FARXIGA 10 MG PO (09:20)
[2024-11-07] MEDS: VITAMIN D3 (cholecalciferol) 25 MCG PO (09:21)
[2024-11-07] MEDS: LASIX 40 MG PO (09:21)
[2024-11-07] MEDS: LOW STRENGTH ASPIRIN PO (09:21)
[2024-11-07] MEDS: FLOMAX 0.4 MG PO (09:21)
--- NOTE | 2024-11-07 09:33 | W.PN.HOSP.TC ---
Today's Communication/Plan
-
Continue current care
Assessment / Plan
Assessment / Plan
Gen-AAOx3, NAD
HEENT-NC, AT, anicteric, clear oral mm
Neck-supple
CV-reg, no M, +S1/S2
Lungs-clear B/L
Abd-soft, NT, ND
Ext-no edema
Musculoskeletal-no cyanosis, clubbing
Skin-warm and dry
Neuro-grossly non-focal
Psych-calm, cooperative
ACS/NSTEMI -chest pain overnight, underwent cardiac catheterization this morning with angioplasty and restenting of RCA. Noted to have patent LAD and ramus stents.
Cardiology recommends aspirin, clopidogrel, apixaban for 1 to 2 weeks then clopidogrel and apixaban. Troponins trending down.
Chronic heart failure midrange EF -stable.
ICD
Essential hypertension -stable.
Hyperlipidemia -rosuvastatin.
Persistent atrial fibrillation -Eliquis to resume tonight. Can stop heparin drip when resumed.
BPH
overactive bladder
History of stroke
Carotid stenosis -left CEA.
Full code
Anticipated Discharge: 24 - 48 hours
Subjective/Interval History
-
Date of Service: November 07, 2024
Patient seen and examined. Feeling better now. He had a catheterization this morning. No chest pain currently.
Objective Data
-
Labs:
Laboratory Results
11/07/24 11/07/24
03:05 10:00
WBC 9.3
Hgb 15.4
Hct 45.6
Plt Count 146
APTT 72.9 H Cancelled
Sodium 141
Potassium 4.0
Chloride 106
Carbon Dioxide 25
BUN 29 H
Creatinine 1.0
Glucose 100 H
Calcium 9.1
Vital Signs:
Vital Signs
Temp Pulse Resp BP Pulse Ox
97.6 F 70 20 115/73 96
11/07/24 02:48 11/07/24 06:28 11/07/24 02:48 11/07/24 06:28 11/07/24 06:28
I&O
11/06/24 11/07/24 11/08/24
06:59 06:59 06:59
Intake Total 592 / 592 960 / 960
Output Total 600 / 600 975 / 975
Balance -8 / -8 -15 / -15
Review of Systems
-
History Source: Patient
All other systems: Reviewed and negative
[2024-11-07] MEDS: ALDACTONE 12.5 MG PO (11:32)
[2024-11-07] MEDS: LANOXIN 125 MCG PO (11:32)
[2024-11-07] MEDS: COREG PO (11:37)
[2024-11-07] MEDS: NSS IV (13:06)
--- NOTE | 2024-11-07 13:11 | PTCARENOTE ---
Pt returned post cath at 0825. Right groin site dressing dry and intact. Site soft and nontender. Room air sat 97%. Denies any chest pain or sob.
[2024-11-07] MEDS: COREG 25 MG PO (20:31)
[2024-11-07] MEDS: ELIQUIS 5 MG PO (20:32)
[2024-11-08] VITALS (10 sets, daily range): BP systolic 75–114; BP diastolic 52–76; BMI 29.4
--- NOTE | 2024-11-08 00:03 | PTCARENOTE ---
Pt. resting in bed quietly this shift, VSS, V-paced on the monitor. Right femoral site dressing intact with no S&S hematoma, pedal pulses palpable. Pt. states he feels a thousand times better than last night, very grateful for care given.
[2024-11-08] MEDS: TYLENOL 650 MG PO ×2 (02:33→23:48)
[2024-11-08 03:42] LABS: Blood Urea Nitrogen 24 mg/dl (9-20); Calcium 8.5 mg/dl (8.4-10.2); Carbon Dioxide 26 mmol/L (22-30); Chloride 107 mmol/L (98-107); Estimated Creatinine Clearance 52 ml/min; Glucose 128 mg/dl (70-99); Potassium 4.1 mmol/L (3.5-5.1); Sodium 142 mmol/L (135-145); eGFR > 60.00
[2024-11-08 07:42] LABS: ACT-LR - POC > 397 Seconds (116-155)
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
[2024-11-08] MEDS: THERAGRAN 1 TABLET PO (08:37)
[2024-11-08] MEDS: FLOMAX 0.4 MG PO (08:37)
[2024-11-08] MEDS: VITAMIN D3 (cholecalciferol) 25 MCG PO (08:37)
[2024-11-08] MEDS: LASIX 40 MG PO (08:37)
[2024-11-08] MEDS: ALDACTONE 12.5 MG PO (08:37)
[2024-11-08] MEDS: PROTONIX 40 MG PO (08:38)
[2024-11-08] MEDS: PLAVIX 75 MG PO (08:38)
[2024-11-08] MEDS: FARXIGA 10 MG PO (08:38)
[2024-11-08] MEDS: CRESTOR 40 MG PO (08:38)
[2024-11-08] MEDS: LOW STRENGTH ASPIRIN 81 MG PO (08:38)
[2024-11-08] MEDS: ENTRESTO 49 MG/51 MG 1 TAB PO (08:38)
[2024-11-08] MEDS: COREG 25 MG PO (08:38)
[2024-11-08] MEDS: MYRBETRIQ EXTENDED RELEASE 50 MG PO (08:38)
[2024-11-08] MEDS: ELIQUIS 5 MG PO ×2 (08:38→20:36)
--- NOTE | 2024-11-08 10:03 | PTCARENOTE ---
pt continues to be cp free/ and no c/o of sob. pt is vpaced on the monitor, hr in the 70s, vss. pt educated on plan of care and pt verbalized understanding. call santiago within reach.
--- NOTE | 2024-11-08 10:56 | CM ---
Chart reviewed. Patient is independent of ADLS, lives with his in a 2 STH, 1st floor set up, has a SPC at home if needed. Plan is for the patient to return home.
[2024-11-08] MEDS: LANOXIN 125 MCG PO (12:46)
[2024-11-08] MEDS: NSS 500 IV (13:59)
--- NOTE | 2024-11-08 15:11 | PTCARENOTE ---
pt said he feels tired but no complaints of dizziness. He said he was up and walking about prior to the first bp check, 77/52. Rechecked the bp and it was 75/53. notified dr. ley, IVF hung per order, see MAR. Pts bp after ivf 114/70. pt continues
to be paced on the monitor, hr in the 70s. pt educated on plan of care and pt verbalized understanding. call santiago within reach.
--- NOTE | 2024-11-08 15:43 | W.PN.HOSP.TC ---
Today's Communication/Plan
-
echo
Assessment / Plan
Assessment / Plan
Gen-AAOx3, NAD
HEENT-NC, AT, anicteric, clear oral mm
Neck-supple
CV-reg, no M, +S1/S2
Lungs-clear B/L
Abd-soft, NT, ND
Ext-no edema
Musculoskeletal-no cyanosis, clubbing
Skin-warm and dry
Neuro-grossly non-focal
Psych-calm, cooperative
ACS/NSTEMI -chest pain -underwent cardiac catheterization 11/07 with angioplasty and restenting of RCA. Noted to have patent LAD and ramus stents.
Cardiology recommends aspirin, clopidogrel, apixaban for 1 to 2 weeks then clopidogrel and apixaban. Troponins trending down. ECHO today
Chronic heart failure midrange EF -stable.
ICD
Essential hypertension -stable.
Hyperlipidemia -rosuvastatin.
Persistent atrial fibrillation -Eliquis to resume tonight. Can stop heparin drip when resumed.
BPH
overactive bladder
History of stroke
Carotid stenosis -left CEA.
Full code
Anticipated Discharge: 24 - 48 hours
Subjective/Interval History
-
Date of Service: November 08, 2024
no acute events overnight
Objective Data
-
Vital Signs:
Vital Signs
Temp Pulse Resp BP Pulse Ox
97.8 F 70 20 114/70 100
11/08/24 14:58 11/08/24 15:00 11/08/24 10:48 11/08/24 13:55 11/08/24 10:50
I&O
11/07/24 11/08/24 11/09/24
06:59 06:59 06:59
Intake Total 960 / 960 480 / 480
Output Total 975 / 975 1100 / 1100
Balance -15 / -15 -1099 / -1100 480 / 480
Review of Systems
-
History Source: Patient
All other systems: Reviewed and negative
Data Reviewed
-
Diagnostic Radiology: Report Reviewed by me
Labs: Labs Reviewed by me
[2024-11-08] MEDS: COREG PO (20:36)
[2024-11-08] MEDS: ENTRESTO 49 MG/51 MG PO (20:37)
[2024-11-09 03:16] VITALS: BP 115/74
[2024-11-09 05:55] LABS: % Basophils 0.2 % (0-2); % Eosinophils 2.2 % (0-6); % Immature Granulocytes 0.2 % (0-0.5); % Lymphocytes 23.5 % (20.5-51.1); % Monocytes 7.8 % (1.7-9.3); % Neutrophils 66.1 % (42.2-75.2); Absolute Eosinophils 0.2 10^3/uL (0-0.7); Absolute Lymphocytes 2.2 10^3/uL (1.2-3.4); Absolute Monocytes 0.7 10^3/uL (0.1-0.6); Absolute Neutrophils 6.2 10^3/uL (1.4-6.5); Mean Corp Hgb Conc. 33.3 g/dL (33.0-37.0); Mean Corpuscular Hgb 31.1 pg (27.0-31.0); Mean Corpuscular Volume 93.3 fL (80.0-94.0); Mean Platelet Volume 12.2 fL (7.4-10.4); Nucleated Red Blood Cells % 0 % (-); Platelet Count 130 10^3/uL (130-400); Red Cell Dist. Width 15.2 % (11.5-14.5); White Blood Cell Count 9.4 10^3/uL (4.8-10.8)
[2024-11-09 06:00] VITALS: BMI 29.3
[2024-11-09 06:19] LABS: Blood Urea Nitrogen 24 mg/dl (9-20); Calcium 8.7 mg/dl (8.4-10.2); Carbon Dioxide 25 mmol/L (22-30); Chloride 107 mmol/L (98-107); Estimated Creatinine Clearance 47 ml/min; Glucose 79 mg/dl (70-99); Sodium 142 mmol/L (135-145); eGFR > 60.00
[2024-11-09 07:22] VITALS: BP 108/73
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
[2024-11-09] MEDS: ALDACTONE 12.5 MG PO (08:35)
[2024-11-09] MEDS: ENTRESTO 49 MG/51 MG 1 TAB PO (08:35)
[2024-11-09] MEDS: MYRBETRIQ EXTENDED RELEASE 50 MG PO (08:36)
[2024-11-09] MEDS: PROTONIX 40 MG PO (08:36)
[2024-11-09] MEDS: CRESTOR 40 MG PO (08:37)
[2024-11-09] MEDS: PLAVIX 75 MG PO (08:37)
[2024-11-09] MEDS: THERAGRAN 1 TABLET PO (08:37)
[2024-11-09] MEDS: FARXIGA 10 MG PO (08:37)
[2024-11-09] MEDS: ELIQUIS 5 MG PO (08:37)
[2024-11-09] MEDS: LOW STRENGTH ASPIRIN 81 MG PO (08:38)
[2024-11-09] MEDS: FLOMAX 0.4 MG PO (08:38)
[2024-11-09] MEDS: VITAMIN D3 (cholecalciferol) 25 MCG PO (08:38)
[2024-11-09] MEDS: LASIX 40 MG PO (08:38)
[2024-11-09 08:45] VITALS: BP 116/63
--- NOTE | 2024-11-09 09:13 | PN.CDI ---
CDI
- -
CDI:
Physician Documentation Request
Admit Date: 11/05/24 12:50
Dear Doctor Aleksandar,
Please review the following and provide your response in the progress notes.
Clinical Indicators:
Pt admitted with NSTEMI /ACS
There is potentially conflicting documentation in the record
Documented per cardiology notes ,' Permanent AFib...'
Progress notes 11/06- 11/08, ' Persistent atrial fibrillation...'
Due to potentially conflicting documentation please provide further specificity regarding atrial fibrillation, such as:
Permanent atrial fibrillation - when a decision has been made to accept the presence of AF and there is no further attempt to restore or maintain sinus rhythm
Persistent atrial fibrillation - episodes of continuous AF that last more than 7 days and do not self-terminate
Other - please specify
Use of terms such as suspected, likely, concern for, or probable (associated with a specific diagnosis that is being evaluated, monitored, or treated as if it exists) are acceptable and can be coded in the inpatient setting, when documented at the
time of discharge.
Thank you,
Divya Ramos RN
CDI Specialist
[place] [facility]
Please use your independent medical judgment in providing your response.
[2024-11-09] MEDS: TYLENOL 650 MG PO (09:17)
[2024-11-09 09:29] VITALS: BP 106/70
--- NOTE | 2024-11-09 10:26 | CM ---
Chart reviewed. Patient is independent of ADLS, lives with his in a 2 STH, 1st floor set up, 0 BRETT, has a SPC at home if needed. Plan is for the patient to return home. CM to follow
[2024-11-09 12:32] VITALS: BP 94/52
--- NOTE | 2024-11-09 12:57 | W.DS.TRANS ---
DC Summary - [employer]
-
Discharge Instructions:
Discharge Diagnosis/Procedures Angioplasty and stent to Right Coronary artery
Diet Low Cholesterol,Low Fat,Restrict fluids to 64 oz
Activity As tolerated
Blood Work cbc and bmp in 1 week with pcp
Other Services Cardiac Rehab
Instructions:
Stand-Alone Forms: DC Instructions- Cath/EP Lab
Changes to Home Medications: Yes
Discharge Medications:
DC Medications w/original date entered in [facility]
multivitamin with folic acid 400 mcg tablet (Tab-A-Elma) 1 tab PO DAILY Supplement 06/27/20
furosemide 40 mg tablet 40 mg PO DAILY Fluid retention/Swelling 02/26/21
spironolactone 25 mg tablet 12.5 mg PO DAILY Heart Failure 02/26/21
apixaban 5 mg tablet (Eliquis) 5 mg PO BID Blood clot prevention/tx 05/22/21
rosuvastatin 40 mg tablet 40 mg PO DAILY 10/02/22
cholecalciferol (vitamin D3) 25 mcg (1,000 unit) tablet (Vitamin D3) 25 mcg PO DAILY 12/07/23
dapagliflozin propanediol 10 mg tablet (Farxiga) 10 mg PO DAILY 12/07/23
mirabegron 25 mg tablet,extended release 24 hr (Myrbetriq) 50 mg PO DAILY 12/07/23
tamsulosin 0.4 mg capsule 0.4 mg PO DAILY 12/07/23
acetaminophen 500 mg tablet (Tylenol Extra Strength) 1,500 mg PO DAILYPRN PRN mild pain 11/05/24
digoxin 125 mcg (0.125 mg) tablet 125 mcg PO DAILY 11/05/24
sacubitril 49 mg-valsartan 51 mg tablet (Entresto) 1 tab PO BID 11/05/24
aspirin 81 mg chewable tablet 81 mg PO DAILY Blood clot prevention/tx 14 days #0 tabs 11/09/24
carvedilol 12.5 mg tablet 12.5 mg PO BID 30 days #60 tabs 11/09/24
clopidogrel 75 mg tablet 75 mg PO DAILY 30 days #30 tabs 11/09/24
pantoprazole 40 mg tablet,delayed release 40 mg PO DAILY 30 days #30 tabs 11/09/24
Home Medication Changes
clopidogrel 75 mg tablet 75 mg PO DAILY 30 days #30 tabs 11/09/24
pantoprazole 40 mg tablet,delayed release 40 mg PO DAILY 30 days #30 tabs 11/09/24
Pending Results: No
--- NOTE | 2024-11-09 12:58 | W.PN.HOSP.TC ---
Addendum entered and electronically signed by Perry Huertas MD 11/10/24 17:43:
Permanent atrial fibrillation
Addendum entered and electronically signed by Perry Huertas MD 11/10/24 15:53:
[id number]
Original Note:
Today's Communication/Plan
-
Echocardiogram shows stable LVEF (40-45%) with increased prominence of inferior hypokinesis.
Coreg 12.5mg BID
GDMT
Assessment / Plan
Assessment / Plan
Gen-AAOx3, NAD
HEENT-NC, AT, anicteric, clear oral mm
Neck-supple
CV-reg, no M, +S1/S2
Lungs-clear B/L
Abd-soft, NT, ND
Ext-no edema
Musculoskeletal-no cyanosis, clubbing
Skin-warm and dry
Neuro-grossly non-focal
Psych-calm, cooperative
ACS/NSTEMI -chest pain -underwent cardiac catheterization 11/07 with angioplasty and restenting of RCA. Noted to have patent LAD and ramus stents.
Triple therapy with aspirin, apixaban and clopidogrel for 2 weeks, after which aspirin can be discontinued. Troponins trending down. Echocardiogram shows stable LVEF (40-45%) with increased prominence of inferior hypokinesis. High dose Statin
Chronic heart failure midrange EF -stable.
ICD
Essential hypertension -stable.
Hyperlipidemia -rosuvastatin.
Persistent atrial fibrillation -Eliquis to resume tonight. Can stop heparin drip when resumed.
BPH
overactive bladder
History of stroke
Carotid stenosis -left CEA.
Full code
More than 30 minutes spent in discharge including
Final examination of the patient
Summarizing hospital stay
Instructions for continuing care to all relevant caregivers
Preparation of discharge records, prescriptions, and referral forms
Total time spent (in minutes): 37
Anticipated Discharge: Today
Subjective/Interval History
-
Date of Service: November 09, 2024
no acute events
Objective Data
-
Labs:
Laboratory Results
11/09/24
03:24
WBC 9.4
Hgb 14.0
Hct 42.0
Plt Count 130
Sodium 142
Potassium 4.0
Chloride 107
Carbon Dioxide 25
BUN 24 H
Creatinine 1.2
Glucose 79
Calcium 8.7
Vital Signs:
Vital Signs
Temp Pulse Resp BP Pulse Ox
97.6 F 70 18 106/70 98
11/09/24 12:37 11/09/24 09:30 11/09/24 12:37 11/09/24 09:29 11/09/24 12:37
I&O
11/08/24 11/09/24 11/10/24
06:59 06:59 06:59
Intake Total 960 / 960
Output Total 1100 / 1100
Balance -1100 / -1100 960 / 960
Review of Systems
-
History Source: Patient
All other systems: Not reviewed unless documented
Data Reviewed
-
Diagnostic Radiology: Report Reviewed by me
Labs: Labs Reviewed by me
[2024-11-09] MEDS: LANOXIN 125 MCG PO (13:06)
--- NOTE | 2024-11-09 14:33 | PTCARENOTE ---
Pt received this am with no c/o of chest pain or sob. Room air sat 98%. Right groin site dressing removed, site WNL. Pt oob ad alexander, gait steady. Pt discharged to home with his . Discharge instructions given and reviewed with good understanding
and all questions answered.
== END 2024-11-09 14:19 | disposition home or self-care (01) | DRG 321 ==
LOC: IVU 12:50
PROVIDERS: Clinical Nurse Specialist Family Health; Emergency Medicine; Hospitalist; Internal Medicine Interventional Cardiology; Physician Assistant; Registered Nurse; ADMITTING PHYSICIAN Hospitalist; ATTENDING PHYSICIAN Internal Medicine; EMERGENCY PHYSICIAN Emergency Medicine; FAMILY PHYSICIAN Family Medicine; OTHER PHYSICIAN Internal Medicine Cardiovascular Disease; REFERRING PHYSICIAN Internal Medicine
PROC: 027034Z Dilation of Coronary Artery, One Artery with Drug-eluting Intraluminal Device, Percutaneous Approach (ICD-10-PCS; 2024-11-07)
PROC: B2151ZZ Fluoroscopy of Left Heart using Low Osmolar Contrast (ICD-10-PCS; 2024-11-07)
PROC: 4A023N7 Measurement of Cardiac Sampling and Pressure, Left Heart, Percutaneous Approach (ICD-10-PCS; 2024-11-07)
PROC: B2111ZZ Fluoroscopy of Multiple Coronary Arteries using Low Osmolar Contrast (ICD-10-PCS; 2024-11-07)
DX: T82.867A Thrombosis due to cardiac prosthetic devices, implants and grafts, initial encounter (principal); I21.4 Non-ST elevation (NSTEMI) myocardial infarction; I13.0 Hypertensive heart and chronic kidney disease with heart failure and stage 1 through stage 4 chronic kidney disease, or unspecified chronic kidney disease; I50.32 Chronic diastolic (congestive) heart failure; I42.0 Dilated cardiomyopathy; I48.21 Permanent atrial fibrillation; I25.10 Atherosclerotic heart disease of native coronary artery without angina pectoris; Z86.73 Personal history of transient ischemic attack (TIA), and cerebral infarction without residual deficits; I25.5 Ischemic cardiomyopathy; E78.00 Pure hypercholesterolemia, unspecified; Z87.891 Personal history of nicotine dependence; Z83.3 Family history of diabetes mellitus; Z82.49 Family history of ischemic heart disease and other diseases of the circulatory system; Z79.82 Long term (current) use of aspirin; Z79.01 Long term (current) use of anticoagulants; Z79.899 Other long term (current) drug therapy; Z95.810 Presence of automatic (implantable) cardiac defibrillator; I25.2 Old myocardial infarction; N18.32 Chronic kidney disease, stage 3b; N40.1 Benign prostatic hyperplasia with lower urinary tract symptoms; N32.81 Overactive bladder
CPT/HCPCS: 71046; 80048; 80053; 80061; 83036; 83735; 84484; 85025; 85027; 85347; 85730; 92978; 93005; 93289; 93306; 93458; 96365; 96366; 99152; 99153; 99285; C1725; C1753; C1760; C1769; C1874; C1894; C9600; Q9967

== ENCOUNTER 2024-12-27 16:15 | Outpatient (RCR) | payer MEDICARE, SELFPAY ==
[2024-12-13 11:58] LABS: Glucose - Point of Care 105 mg/dl (70-99)
== END 2024-12-27 23:59 | disposition home or self-care (01) ==
LOC: CRHB 16:15
PROVIDERS: ATTENDING PHYSICIAN Internal Medicine
DX: I25.10 Atherosclerotic heart disease of native coronary artery without angina pectoris (principal); Z95.5 Presence of coronary angioplasty implant and graft; I25.2 Old myocardial infarction
CPT/HCPCS: 82962; G0422; G0423

== ENCOUNTER → 2024-12-30 07:41 | Outpatient (REF) | payer MEDICARE, SELFPAY | LOC: DHVS 07:41 | PROVIDERS: ATTENDING PHYSICIAN Surgery Vascular Surgery; FAMILY PHYSICIAN Family Medicine | DX: I73.9 Peripheral vascular disease, unspecified (principal); I65.23 Occlusion and stenosis of bilateral carotid arteries | CPT/HCPCS: 93880; 93922; 93925 ==